=== PATIENT | female | born 1945 | race Two or more races ===

== ENCOUNTER 2025-08-05 14:29 | Inpatient (IN) | payer OTHER, MEDICAID ==
[~2025-08-05] VITALS: Ht 152.4 cm; Wt 56.0 kg
--- NOTE | 2025-08-05 14:36 | ECG ---
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
--- NOTE | 2025-08-05 14:49 | ED.PDOC ---
HPI Comments 79 y.o female with PMHx of HTN, DM, and arthritis, presents to the ED for a chief complaint of chest pain that started today. Patient was BIB family member who states patient pointed to her left left chest. Per family member, patient was recently [place]25 to 06/27/25 and was discharged to a rehabilitation facility. Patient then went back home where she was living alone and family member was able to move her in on 07/08/25 but [facility] doctors (zanjero and PCP) would not give patient all her medications including blood thinning given insurance and county changes. Patient was able to obtain some of her medication and has been compliant with taking them. Att his time, patient has spontaneous hearing deficiency. No other medical history or c/o reported. Chief Complaint: Chest Pain Time Seen by MD: 14:35 Reviewed Notes: Nurses Notes, Medications, Allergies Allergies: Coded Allergies: NO KNOWN ALLERGIES (Unverified , 08/05/25) Information Source: Patient Mode of Arrival: Wheelchair Severity: Moderate Timing: Hours Duration: Since onset Location: Chest (L) Radiation: No Radiation Quality: Sharp Onset: At Rest Cardiac Risk Factors: HTN, Diabetes PE Risk Factors: None History of: None Modifying Factors: Nothing Associated Signs and Symptoms: None Past Medical History PAST MEDICAL HISTORY: Arthritis, DM, HTN Surgical History: Unknown PACKAGE PICK UP History: No Pertinent PACKAGE PICK UP History Family History Family History: Reviewed,noncontributory to illness Social History Smoker: Non-Smoker Alcohol: Denies ETOH Use Drugs: Denies Drug Use Lives In: Home Constitutional: denies: chills, diaphoresis, fatigue, fever, malaise, sweats, weakness, others EENTM: denies: blurred vision, double vision, ear bleeding, ear discharge, ear drainage, ear pain, ear ringing, eye pain, eye redness, hearing loss, mouth pain, mouth swelling, nasal discharge, nose bleeding, nose congestion, nose pain, photophobia, tearing, throat pain, throat swelling, voice changes, others Respiratory: denies: cough, hemoptysis, orthopnea, SOB at rest, shortness of breath, SOB with excertion, stridor, wheezing, others Cardiovascular: reports: chest pain; denies: dizzy spells, diaphoresis, Dyspnea on exertion, edema, irregular heart beat, left arm pain, lightheadedness, palpitations, PND, syncope, others Gastrointestinal: denies: abdomen distended, abdominal pain, blood streaked bowels, constipated, diarrhea, dysphagia, difficulty swallowing, hematemesis, melena, nausea, poor appetite, poor fluid intake, rectal bleeding, rectal pain, vomiting, others Genitourinary: denies: abnormal vagina bleeding, burning, dyspareunia, dysuria, flank pain, frequency, hematuria, incontinence, pain, , vagina discharge, urgency, others Neurological: denies: dizziness, fainting, headache, left sided numbness, left sided weakness, numbness, paresthesia, pre-existing deficit, right sided n umbness, right sided weakness, seizure, speech problems, tingling, tremors, weakness, others Musculoskeletal: denies: back pain, gout, joint pain, joint swelling, muscle pain, muscle stiffness, neck pain, others Integumetry: denies: bruises, change in color, change in hair/nails, dryness, laceration, lesions, lumps, rash, wounds, others Allergic/Immunocompromised: denies: Difficulty Healing, Frequent Infections, Hives, Itching, others Hematologic/Lymphatic: denies: anemia, blood clots, easy bleeding, easy bruising, swollen glands, others Endocrine: denies: excessive hunger, excessive sweating, excessive thirst, excessive urination, flushing, intolerance to cold, intolerance to heat, unexplained weight gain, unexplained weight loss, others Psychiatric: denies: anxiety, bipolar disorder, depression, hopeless, panic disorder, schizophrenia, sleepless, suicidal, others All Other Systems: Reviewed and Negative Physical Exam General Appearance: Moderate Distress HEENT: Normal ENT Inspection, Pharynx Normal, TMs Normal Neck: Full Range of Motion, Non-Tender, Normal, Normal Inspection Respiratory: Chest Non-Tender, Lungs Clear, No Accessory Muscle Use, No Respiratory Distress, Normal Breath Sounds Cardiovascular: Irregular Breast Exam: Deferred Gastrointestinal: No Organomegaly, Non Tender, No Pulsatile Mass, Normal Bowel Sounds, Soft Genitalia: Deferred Pelvic: Deferred Rectal: Deferred Extremities: No calf tenderness, No pedal edema Musculoskeletal : Apperance: Normal Neurologic: Alert, scheduler II-XII nml as Tested, No Motor Deficits, Normal Affect, Normal Mood, No Sensory Deficits Cerebellar Function: NOT DONE Reflexes: NOT DONE Skin: Normal Color Peripheral Pulses: 3+ Radial (R), 3+ Radial (L) Lymphatic: No Adenopathy EKG EKG : Pulse Rate (adult): 128 Cardiac Rhythm: Afib Was a procedure done? Was a procedure done?: No CP Differential Dx Differential Diagnosis: A-fib, A-Flutter, Angina, Anxiety / Panic Attack, Atrial Dysrhythmia, Electrolyte Disorder, N/A Differential Diagnosis: Angina, Chest Wall Pain, Cholelithiasis, Costochondritis, Gastritis, Myocardial Infarction, Pericarditis X-Ray, Labs, Meds, VS Vital Signs Date Time Temp Pulse Resp B/P (MAP) Pulse Ox O2 Delivery O2 Flow Rate FiO2 08/05/25 17:07 94 Nasal Cannula* 2 28 08/05/25 17:01 127 17 94 Nasal Cannula* 2 28 08/05/25 15:42 97.7 129 16 139/83 (101) 94 97.7 08/05/25 15:25 119 08/05/25 14:47 98.0 150 20 106/76 95 98.0 08/05/25 14:34 150 Lab Test 08/05/25 16:09 08/05/25 14:57 Range/Units Troponin I High Sensitivity 4 5 </=34 ng/L White Blood Count 8.7 4.4-10.8 10^3/uL Red Blood Count 5.63 H 4.0-5.20 10^6/uL Hemoglobin 19.1 H 12.2-16.2 g/dL Hematocrit 55.5 H 36.0-46.0 % Mean Corpuscular Volume 98.5 80.0-100.0 fL Mean Corpuscular Hemoglobin 34.0 H 28.0-32.0 pg Mean Corpuscular Hemoglobin Concent 34.5 32.0-36.0 g/dL Red Cell Distribution Width 17.7 H 11.8-14.3 % Platelet Count 216 140-450 10^3/uL Mean Platelet Volume 8.9 6.9-10.8 fL Neutrophils (%) (Auto) 37.0-80.0 % Lymphocytes (%) (Auto) 10.0-50.0 % Monocytes (%) (Auto) 0.0-12.0 % Basophils (%) (Auto) 0.0-2.0 % Neutrophils # (Auto) 1.6-8.6 10 ^3/uL Lymphocytes # (Auto) 0.4-5.4 10 ^3/uL Monocytes # (Auto) 0-1.3 10 ^3/uL Differential Total Cells Counted 100.0 100 Neutrophils % (Manual) 65 37.0-80.0 Band Neutrophils % (Manual) 2 Lymphocytes % (Manual) 27 10.0-50.0 Monocytes % (Manual) 5 0-12 Eosinophils % (Manual) 1 0-7 Basophils % (Manual) 0 0.0-2.0 Metamyelocytes % (manual) 0 Myelocytes % (Manual) 0 Promyelocytes % (Manual) 0 Blast Cells % (Manual) 0 Reactive Lymphocytes 0 Platelet Estimate F Prothrombin Time 13.3 H 9.3-11.8 sec Prothrombin Time INR 1.29 H 0.9-1.15 Activated Partial Thromboplast Time 27.4 24.5-34.5 SEC Sodium Level 131 L 136-145 mmol/L Potassium Level 3.8 3.5-5.1 mmol/L Chloride Level 94 L 98-107 mmol/L Carbon Dioxide Level 16 L 20-31 mmol/L Anion Gap 21 H 5-15 Blood Urea Nitrogen 8 L 9-23 mg/dL Creatinine 0.81 0.550-1.02 mg/dL Glomerular Filtration Rate Calc 73 >90 mL/min BUN/Creatinine Ratio 9.9 L 10.0-20.0 Serum Glucose 138 H 74-106 mg/dL Lactic Acid Level 3.2 *H 0.4-2.0 mmol/L Calcium Level 9.8 8.7-10.4 mg/dL Total Bilirubin 0.7 0.2-1.0 mg/dL Aspartate Amino Transferase (AST) 37 13-40 U/L Alanine Aminotransferase (ALT) 24 7-40 U/L Alkaline Phosphatase 149 H 46-116 U/L Total Protein 7.8 5.7-8.2 g/dL Albumin 3.8 3.2-4.8 g/dL Current Medications Medications (Trade) Dose Ordered Sig/Cornelius Route Start Time Stop Time Status Last Admin Sodium Chloride 500 ml @ 500 mls/hr Q1H ONCE IV 08/05/25 14:45 08/05/25 15:44 DC 08/05/25 15:11 Amiodarone HCl 100 ml @ 600 mls/hr ONCE ONCE IV 08/05/25 14:45 08/05/25 14:54 DC 08/05/25 15:11 Amiodarone HCL/ Dextrose 200 ml @ 33.33 mls/ hr ONCE ONCE IV 08/05/25 15:00 08/05/25 21:00 08/05/25 15:00 Patient alert. Came in because of rapid heart rate. Vitals stable. Answering questions. EKG does show atrial fibrillation. Started on amiodarone. Establish intravenous access. Was given fluids. Placed on oxygen. Continue to monitor. Time of 1ST Reevaluation: 14:40 Reevaluation 1ST: Unchanged Patient Education/Counseling: Diagnosis, Treatment Family Education/Counseling: Diagnosis, Treatment, Prognosis, Need For Follow Up SEPSIS Sepsis Screen Physician Orders Troponin-I Hs (08/05/25 17:34) Electrocardigram (08/05/25 17:34) Urinalysis (08/05/25 14:40) Chest Portable (08/05/25 14:40) Accucheck (08/05/25 14:40) Blood Culture (08/05/25 14:40) Notify Md If Map <65 Or Bp<90 (08/05/25 14:40) If Map<65 Start Vasopressor (08/05/25 14:40) Sepsis Reassesment After Fluid (08/05/25 15:40) Amiodarone 360mg/200ml Premix (Nexterone (08/05/25 15:00) Vital Signs Date Time Temp Pulse Resp B/P (MAP) Pulse Ox O2 Delivery O2 Flow Rate FiO2 08/05/25 17:07 94 Nasal Cannula* 2 28 08/05/25 17:01 127 17 94 Nasal Cannula* 2 28 08/05/25 15:42 97.7 129 16 139/83 (101) 94 97.7 08/05/25 15:25 119 08/05/25 14:47 98.0 150 20 106/76 95 98.0 08/05/25 14:34 150 Laboratory Tests Test 08/05/25 14:57 Lactic Acid Level 3.2 mmol/L (0.4-2.0) *H White Blood Count 8.7 10^3/uL (4.4-10.8) Medications Medications Dose Ordered Sig/Cornelius Route Start Time Stop Time Status Last Admin Dose Admin Amiodarone HCl 100 ml @ 600 mls/hr ONCE ONCE IV 08/05/25 14:45 08/05/25 14:54 DC 08/05/25 15:11 Amiodarone HCL/ Dextrose 200 ml @ 33.33 mls/ hr ONCE ONCE IV 08/05/25 15:00 08/05/25 21:00 08/05/25 15:00 Sodium Chloride 500 ml @ 500 mls/hr Q1H ONCE IV 08/05/25 14:45 08/05/25 15:44 DC 08/05/25 15:11 Departure 1 Departure Time of Disposition: 17:20 Impression: Primary Impression: Atrial fibrillation Qualified Codes: I48.0 - Paroxysmal atrial fibrillation Disposition: ADMITTED INPATIENT Admit to: Med Surg Condition: Guarded Critical Care Note Critical Care Time?: Yes (90 min-critical care time only) Stability Stability form required: No Heart Score Heart Score: Heart Score Response (Comments) Value History Slightly Suspicious 0 EKG Normal 0 Age >65 2 Risk Factors >3 or Hx ASHD 2 Troponin Normal limit 0 Total 4 I personally scribed for BIJAN FREEDMAN MD ([email or web address]) on 08/05/25 at 14:49. Electronically submitted by Nathalia Parrish ([facility]). BIJAN FREEDMAN MD Aug 05, 2025 14:49
[2025-08-05] MEDS: AMIODARONE 360mg/200mL PREMIX 200 ML IV ONE (15:00)
[2025-08-05] MEDS: AMIODARONE BOLUS KIT 100 ML IV ONE (15:11)
[2025-08-05] MEDS: SODIUM CHLORIDE 0.9% 500 ML IV ONE (15:11)
--- NOTE | 2025-08-05 15:14 | DVH ---
EXAM: XY CHEST PORTABLE Indication: sob Technique: Single frontal view of the chest was obtained Comparison: None FINDINGS: Lines and Tubes: None Lungs: No focal consolidation. Pleura: No effusion. No pneumothorax. Cardiomediastinal contours: Unremarkable Bones: No acute osseous abnormality. IMPRESSION: No acute cardiopulmonary disease.
[2025-08-05 15:20] LABS: Hematocrit 55.5 % (36.0-46.0)
[2025-08-05 15:22] LABS: Hemoglobin 19.1 g/dL (12.2-16.2); Mean Corpuscular Hemoglobin 34.0 pg (28.0-32.0); Mean Corpuscular Volume 98.5 fL (80.0-100.0)
[2025-08-05 15:36] LABS: INR 1.29 (0.9-1.15); Partial Thromboplastin Time 27.4 SEC (24.5-34.5); Prothrombin Time 13.3 sec (9.3-11.8)
[2025-08-05 15:51] LABS: Lactic Acid w/Reflex 3.2 mmol/L (0.4-2.0)
[2025-08-05 16:06] LABS: Alanine Aminotransferase 24 U/L (7-40); Albumin 3.8 g/dL (3.2-4.8); Alkaline Phosphatase 149 U/L (46-116); Anion Gap 21 (5-15); BUN/Creatinine Ratio 9.9 (10.0-20.0); Bilirubin, Total 0.7 mg/dL (0.2-1.0); Blood Urea Nitrogen 8 mg/dL (9-23); Calcium 9.8 mg/dL (8.7-10.4); Carbon Dioxide 16 mmol/L (20-31); Chloride 94 mmol/L (98-107); Glucose 138 mg/dL (74-106); Potassium 3.8 mmol/L (3.5-5.1); Sodium 131 mmol/L (136-145); Total Cells Counted 100.0 (100); Total Protein 7.8 g/dL (5.7-8.2)
--- NOTE | 2025-08-05 16:08 | ECG ---
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
[2025-08-05 17:01] VITALS: PULSE 127; RESP 17; O2SAT 94
[2025-08-05] MEDS: CEFEPIME 1GM/50ML 50 ML IV ONE (17:39)
--- NOTE | 2025-08-05 18:57 | ECG ---
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
[2025-08-05] MEDS ORDERED: ACETAMINOPHEN 325 MG TAB PO PRN (20:00)
[2025-08-05] MEDS: SODIUM CHLORIDE 0.9% 1,000 ML IV ONE (20:00)
[2025-08-05] MEDS ORDERED: ONDANSETRON HCL 4 MG/2 ML VIAL IV PRN (20:00)
[2025-08-05] MEDS ORDERED: MORPHINE SULFATE INJ 2 MG/ml SYRG IV PRN (21:30)
[2025-08-05] MEDS ORDERED: NITROGLYCERIN 0.4 MG SL TAB SL PRN (21:30)
[2025-08-05 21:31] LABS: Base Excess -4.4 mmol/L (-2.0-3.0)
[2025-08-05] MEDS ORDERED: HYDROcodone-ACET 5/325MG TAB PO PRN (22:00)
[2025-08-05] MEDS ORDERED: CEFEPIME 1GM/50ML 50 ML IV SCH (22:00)
[2025-08-05 22:43] LABS: Urine Protein, UAD 2+ (Negative)
[2025-08-06] VITALS (8 sets, daily range): BP systolic 90–121; BP diastolic 61–81; PULSE 100–116; RESP 11–26; TEMP 97.9–98.5; O2SAT 94–100
[2025-08-06] MEDS: CEFEPIME 1GM/50ML 50 ML IV SCH (02:00)
[2025-08-06 04:26] LABS: Hematocrit 51.7 % (36.0-46.0); Hemoglobin 17.4 g/dL (12.2-16.2); Mean Corpuscular Hemoglobin 33.2 pg (28.0-32.0); Mean Corpuscular Volume 98.8 fL (80.0-100.0); Nucleated Red Blood Cells % 0.1 %
--- NOTE | 2025-08-06 04:28 | DVHHP2 ---
History of Present Illness Reason for Visit: Chest pain History of Present Illness 79-year-old female presents for evaluation of chest pain. Patient presents with a one day history of left-sided chest pain with shortness for breath. On arrival patient was noted to be in AFib with RVR and was started on amiodarone drip. Patient denies nausea or vomiting. Past Medical History Dementia, hypertension, diabetes mellitus Family History Noncontributory Smoke: No ALCOHOL: none Drugs: None Lives: with Family Review of Systems Review of Systems Review of systems are currently negative otherwise addressed in HPI. Allergies: Coded Allergies: NO KNOWN ALLERGIES (Unverified , 08/05/25) Medications Current Medications Medications Dose Ordered Sig/Cornelius Route Start Time Stop Time Status Last Admin Dose Admin Cefepime HCl 50 ml @ 12.5 mls/hr Q8H IV 08/06/25 02:00 Enoxaparin Sodium 40 mg DAILY SC 08/06/25 10:00 Acetaminophen 650 mg Q6HP PRN PO 08/05/25 20:00 Ondansetron HCl 4 mg Q4HP PRN IV 08/05/25 20:45 Nitroglycerin 0.4 mg Q5MINP PRN SL 08/05/25 21:30 Morphine Sulfate 2 mg Q30M PRN IV 08/05/25 21:30 Acetaminophen/ Hydrocodone Bitart 1 tab Q6HPRN PRN PO 08/05/25 22:00 Exam Vital Signs Vital Signs Date Time Temp Pulse Resp B/P (MAP) Pulse Ox O2 Delivery O2 Flow Rate FiO2 08/05/25 18:00 131 16 136/94 (108) 94 08/05/25 17:07 Nasal Cannula* 2 28 08/05/25 15:42 97.7 97.7 Exam Gen: 79-year-old female in mild distress Skin: Warm, dry, normal color and texture, no rash. HEENT: Normocephalic atraumatic, mucous membranes moist and pink. Neck: Cervical and supraclavicular nodes normal without enlargement, trachea is midline, thyroid gland is normal without masses. Pulmonary: Clear to auscultation and percussion bilaterally. Cardiac: Irregular rhythm Abdomen: Soft, nontender, nondistended, bowel sounds present all 4 quadrants, no guarding, no rigidity, no organomegaly. Extremities: No cyanosis, clubbing, no edema Neuro: Cranial nerves II through XII grossly intact, normal affect and speech, no focal motor deficits. Labs/Xrays ORDERING PHYSICIAN: BIJAN FREEDMAN MD PROCEDURE(s): CXRP - CHEST PORTABLE REASON: sob ORDER NUMBER(s): [id number], ACCESSION NUMBER(s): [id number] EXAM: XY CHEST PORTABLE Indication: sob Technique: Single frontal view of the chest was obtained Comparison: None FINDINGS: Lines and Tubes: None Lungs: No focal consolidation. Pleura: No effusion. No pneumothorax. Cardiomediastinal contours: Unremarkable Bones: No acute osseous abnormality. IMPRESSION: No acute cardiopulmonary disease. Labs Test 08/06/25 04:00 08/05/25 22:15 08/05/25 21:21 08/05/25 16:58 Range/Units Urine Color Dark yellow Yellow Urine Clarity Ex.turbid Clear Urine pH 5.5 5.0-9.0 Urine Specific [place] 1.031 1.001-1.035 Urine Protein 2+ H Negative Urine Ketones 1+ H Negative Urine Blood 2+ H Negative /uL Urine Nitrite Negative Negative Urine Bilirubin Negative Negative Urine Urobilinogen Normal Negative mg/dL Urine Leukocyte Esterase 3+ Negative /uL Urine RBC 112 0 - 4 /hpf Urine Microscopic WBC 1681 H 0-5 /HPF Urine Squamous Epithelial Cells None seen <5 /hpf Urine Bacteria None seen None Seen /hpf Urine Glucose 2+ H Normal mg/dL Blood Gas Specimen Type Arterial Blood Gas Sample Site Left brachial Blood Gas Patient Temperature 37.0 Arterial Blood Date Drawn [id number] Arterial Blood pH 7.438 7.350-7.450 Arterial Blood Partial Pressure CO2 26.8 L 32.0-45.0 mmHg Arterial Blood Partial Pressure O2 81.8 L 83.0-108.0 mmHg Arterial Blood HCO3 17.7 L 21.0-28.0 mmol/L Arterial Blood Oxygen Saturation 96.4 94.0-98.0 % Arterial Blood Base Excess -4.4 L -2.0-3.0 mmol/L Arterial Blood Oxyhemoglobin 95.4 94.0-98.0 % Arterial Blood Carboxyhemoglobin 0.4 L 0.5-1.5 % Arterial Blood Methemoglobin 0.6 0.0-1.5 % Deny Test Yes Blood Gas Total Hemoglobin 17.70 H 12.0-16.0 g/dL Blood Gas Liter Flow 3.00 Blood Gas Modality Nasal cannula FiO2 % 32.0 Blood Gas Critical Value Read Back Yes Lactic Acid Level 2.7 *H 0.4-2.0 mmol/L Troponin I High Sensitivity 3 L </=34 ng/L Test 08/05/25 14:57 Range/Units Differential Total Cells Counted 100.0 100 Neutrophils % (Manual) 65 37.0-80.0 Band Neutrophils % (Manual) 2 Lymphocytes % (Manual) 27 10.0-50.0 Monocytes % (Manual) 5 0-12 Eosinophils % (Manual) 1 0-7 Basophils % (Manual) 0 0.0-2.0 Metamyelocytes % (manual) 0 Myelocytes % (Manual) 0 Promyelocytes % (Manual) 0 Blast Cells % (Manual) 0 Reactive Lymphocytes 0 Platelet Estimate F Prothrombin Time 13.3 H 9.3-11.8 sec Prothrombin Time INR 1.29 H 0.9-1.15 Activated Partial Thromboplast Time 27.4 24.5-34.5 SEC SEPSIS Sepsis Screen Date sepsis recognized/suspect: Aug 05, 2025 Time Sepsis recognized/suspect: 1440 Recent Procedure: No On Antibiotic Therapy: Yes Respiratory Rate >20: Yes Heart Rate >90: Yes Temp<36 C (96.8 F) or >38.3 C: No SBP <90 or MAP <65 mmHG: No New Acute Mental Status Change: No Is the patient on CPAP, BIPAP,: No Physician Orders Ondansetron Hcl (Zofran) (08/05/25 20:45) Abg W/ Co-Ox (08/05/25 20:43) Admit (08/05/25 21:28) Nitroglycerin Sublingual (Ntrostat Subli (08/05/25 21:30) Morphine Sulfate Injection (08/05/25 21:30) Stat Ekg For Chest Pain (08/05/25 21:28) Notify Of Changes From Base (08/05/25 21:28) Channel Opener Outsoles For 24 Hours (08/05/25 21:28) Emergency Dysrhythmia Protocol (08/05/25 21:28) Rhythm Strips Once Every Shift (08/05/25 21:28) Oxygen By Nasal Cannula (08/05/25 21:28) Hydrocodone-Acet 5/325mg Tab ([place] 5/32 (08/05/25 22:00) Communication Order (08/06/25 04:23) Laboratory Tests Test 08/05/25 16:58 08/06/25 04:00 Lactic Acid Level 2.7 mmol/L (0.4-2.0) *H White Blood Count Pending Medications Medications Dose Ordered Sig/Conrelius Route Start Time Stop Time Status Last Admin Dose Admin Sodium Chloride 1,000 ml @ 100 mls/hr Q10H ONCE IV 08/05/25 20:00 08/06/25 05:59 08/05/25 20:00 100 MLS/HR Assessment/Plan Assessment/Plan Assessment AFib with RVR Diabetes mellitus Hypertension Dementia UTI Plan Admit the patient to JIMÉNEZ to the hospitalist Continue amiodarone drip Cardiology consultation Echocardiogram pending Rocephin Continue treatment per orders Plan discussed with: Patient My Orders Orders - JOHN SANCHES Procedure Category Date Status Time Communication Order ORDERS 08/05/25 Transmitted 19:45 Sodium Chloride 0.9% PHA 08/05/25 In Process 20:00 Consistent DIET 08/06/25 Transmitted Carb(Ccho)Diabetes Breakfast Enoxaparin Sodium PHA 08/06/25 In Process (Lovenox) 10:00 Complete Blood Count LAB 08/06/25 In Process 04:00 Comprehensive LAB 08/06/25 In Process Metabolic Panel 04:00 Echo 2d Mode Cardiac US 08/05/25 Logged DOP 19:47 Condition: Critical NACHO 08/05/25 In Process 19:47 Acetaminophen Tablet PHA 08/05/25 In Process (Tylenol Tablet) 20:00 Bedrest With Bathroom NACHO 08/05/25 In Process Privileg 19:47 * Cardiology Consult CONS 08/05/25 Transmitted 19:47 Cefepime 1gm/50ml PHA 08/06/25 In Process (Maxipime 1gm/50ml) 02:00 Ondansetron Hcl PHA 08/05/25 In Process (Zofran) 20:45 Admit ADMIT 08/05/25 Transmitted 21:28 Nitroglycerin PHA 08/05/25 In Process Sublingual (Ntrostat 21:30 Morphine Sulfate PHA 08/05/25 In Process Injection 21:30 Stat Ekg For Chest NACHO 08/05/25 In Process Pain 21:28 Notify Md Of Changes [facility] 08/05/25 In Process From Base 21:28 Channel Opener Outsoles For [facility] 08/05/25 In Process 24 Hours 21:28 Emergency Dysrhythmia [facility] 08/05/25 In Process Protocol 21:28 Rhythm Strips Once [facility] 08/05/25 In Process Every Shift 21:28 Oxygen By Nasal RT 08/05/25 Transmitted Cannula 21:28 Hydrocodone-Acet PHA 08/05/25 In Process 5/325mg Tab ([place] 22:00 Communication Order ORDERS 08/06/25 Verified 04:23 Date of Service: Aug 05, 2025 Billing Provider: JOHN SANCHES Common Visit Codes: [id number] CARE 30-74 MIN JOHN SANCHES Aug 06, 2025 04:28
[2025-08-06 06:30] LABS: Triglycerides 136 mg/dL (< 150)
[2025-08-06 06:35] LABS: Cholesterol 218 mg/dL (< 200); HDL Cholesterol 25 mg/dL (40-59)
[2025-08-06 06:36] LABS: Alanine Aminotransferase 18 U/L (7-40); Alkaline Phosphatase 114 U/L (46-116); Anion Gap 14 (5-15); BUN/Creatinine Ratio 16.7 (10.0-20.0); Blood Urea Nitrogen 11 mg/dL (9-23); Carbon Dioxide 22 mmol/L (20-31); Total Protein 6.2 g/dL (5.7-8.2)
[2025-08-06 06:37] LABS: Bilirubin, Total 0.4 mg/dL (0.2-1.0)
[2025-08-06 06:50] LABS: Albumin 3.1 g/dL (3.2-4.8); Calcium 8.5 mg/dL (8.7-10.4); Chloride 92 mmol/L (98-107); Glucose 153 mg/dL (74-106); Potassium 3.4 mmol/L (3.5-5.1); Sodium 128 mmol/L (136-145)
[2025-08-06] MEDS: ONDANSETRON HCL 4 MG/2 ML VIAL IV PRN (08:30)
--- NOTE | 2025-08-06 08:56 | DVHINCON2 ---
KATHRIN DUGAN EGG CRATER 08/06/25 0856: Date Seen: Aug 06, 2025 Referring Physician MANUEL Garrison Reason for Consultation AFib with RVR History of Present Illness This is an 79-year-old Amharic-speaking female who presented to the ED with complaint of chest pain that began a day prior to arrival. She is alert to name and place but is a poor historian. At present, she denies chest pain, diaphoresis, shortness of breath, or dyspnea. Per ED course, she was noted to be in atrial fibrillation with rapid ventricular response at rates in the 150s a nd she was started on amiodarone drip. According to the chart review, her family member reported that the patient had pointed to left-sided chest pain prior to arrival. A 12 lead ECG confirmed atrial fibrillation with RVR. Troponins have remained negative. Past medical history includes hypertension, diabetes type 2, dementia, hard of hearing, and arthritis. Past Medical History As stated in HPI Past Surgical History Denies Family History Reviewed, non-contributory to the management of this case. Social History The patient lives at home, denies smoking, alcohol or illicit drugs abuse. Allergies: Coded Allergies: NO KNOWN ALLERGIES (Unverified , 08/05/25) Current Medications Current Medications Medications (Trade) Dose Ordered Sig/Cornelius Route PRN Reason Start Time Stop Time Status Last Admin Cefepime HCl 50 ml @ 12.5 mls/hr Q8HR IV 08/05/25 22:00 08/05/25 16:11 DC Cefepime HCl 50 ml @ 12.5 mls/hr Q8H IV 08/06/25 02:00 Ondansetron HCl (Zofran) 4 mg Q4HP PRN IV NAUSEA / VOMITING 08/05/25 20:00 08/05/25 20:42 DC Enoxaparin Sodium (Lovenox) 40 mg DAILY SC 08/06/25 10:00 Acetaminophen (Tylenol Tablet) 650 mg Q6HP PRN PO PAIN SCALE 1-3 OR TEMP>100.4 08/05/25 20:00 Ondansetron HCl (Zofran) 4 mg Q4HP PRN IV NAUSEA / VOMITING 08/05/25 20:45 08/06/25 08:30 Nitroglycerin (Ntrostat Sublingual) 0.4 mg Q5MINP PRN SL FOR CHEST PAIN 08/05/25 21:30 Morphine Sulfate 2 mg Q30M PRN IV FOR CHEST PAIN 08/05/25 21:30 Acetaminophen/ Hydrocodone Bitart ([place] 5/325MG Tab) 1 tab Q6HPRN PRN PO MODERATE PAIN (4-6 PAIN SCALE) 08/05/25 22:00 Amiodarone HCL/ Dextrose 200 ml @ 16.66 mls/ hr Q12H IV 08/06/25 11:45 Review of Systems Constitutional: No symptom reported Ears, Nose, & Throat: No symptom reported Eyes: No symptom reported Neurological: No symptoms reported Pulmonary/Respiratory: No symptom reported Cardiovascular: Chest pain, none currently. No palpitations at this time Gastrointestinal: No symptom reported Genitourinary: No symptom reported Musculoskeletal: No symptom reported Skin: No symptom reported Psychiatric: No symptom reported Endocrine: No symptom reported Hemotologic/Lymphatic: No symptom reported Vital Signs Vital Signs Date Time Temp Pulse Resp B/P (MAP) Pulse Ox O2 Delivery O2 Flow Rate FiO2 08/06/25 08:00 108 13 123/81 (95) 93 08/06/25 07:39 98.1 98.1 08/06/25 07:30 Nasal Cannula* 2 28 Physical Exam INITIAL VITAL SIGNS: Reviewed by me GENERAL: Elderly female, alert and oriented to name and place, in no acute distress HEAD: Head is normocephalic and atraumatic. EYES: EOMI, PERRL. No scleral icterus. No conjunctival injection. ENT: Moist mucous membranes. NECK: Supple, No masses, Full range of motion. RESPIRATORY: No tachypnea. Clear breath sounds bilaterally. No wheezing, rales, rhonchi. CV: Irregularly irregular rhythm, tachycardic, no murmurs, no edema GI/: Active bowel sounds, soft, nondistended, nontender. No guarding. No rebound. No masses. No CVA tenderness. INTEGUMENTARY: Warm and dry. No obvious rashes. NEUROLOGIC: Alert and oriented. Labs/Diagnostic Data Labs Test 08/06/25 05:54 08/06/25 04:00 08/05/25 22:15 08/05/25 21:21 Range/Units Sodium Level 128 L 136-145 mmol/L Potassium Level 3.4 L 3.5-5.1 mmol/L Chloride Level 92 L 98-107 mmol/L Carbon Dioxide Level 22 20-31 mmol/L Anion Gap 14 5-15 Blood Urea Nitrogen 11 9-23 mg/dL Creatinine 0.66 0.550-1.02 mg/dL Glomerular Filtration Rate Calc 88 >90 mL/min BUN/Creatinine Ratio 16.7 10.0-20.0 Serum Glucose 153 H 74-106 mg/dL Calcium Level 8.5 L 8.7-10.4 mg/dL Total Bilirubin 0.4 0.2-1.0 mg/dL Aspartate Amino Transferase (AST) 34 13-40 U/L Alanine Aminotransferase (ALT) 18 7-40 U/L Alkaline Phosphatase 114 46-116 U/L Total Protein 6.2 5.7-8.2 g/dL Albumin 3.1 L 3.2-4.8 g/dL Triglycerides Level 136 < 150 mg/dL Cholesterol Level 218 H < 200 mg/dL LDL Cholesterol 183 H < 100 mg/dL HDL Cholesterol 25 L 40-59 mg/dL Thyroid Stimulating Hormone (TSH) 4.76 0.55-4.78 uIU/mL White Blood Count 9.1 4.4-10.8 10^3/uL Red Blood Count 5.23 H 4.0-5.20 10^6/uL Hemoglobin 17.4 H 12.2-16.2 g/dL Hematocrit 51.7 H 36.0-46.0 % Mean Corpuscular Volume 98.8 80.0-100.0 fL Mean Corpuscular Hemoglobin 33.2 H 28.0-32.0 pg Mean Corpuscular Hemoglobin Concent 33.7 32.0-36.0 g/dL Red Cell Distribution Width 17.1 H 11.8-14.3 % Platelet Count 160 140-450 10^3/uL Mean Platelet Volume 8.8 6.9-10.8 fL Neutrophils (%) (Auto) 76.0 37.0-80.0 % Lymphocytes (%) (Auto) 13.7 10.0-50.0 % Monocytes (%) (Auto) 9.3 0.0-12.0 % Eosinophils (%) (Auto) 0.6 0.0-7.0 % Basophils (%) (Auto) 0.4 0.0-2.0 % Neutrophils # (Auto) 6.9 1.6-8.6 10 ^3/uL Lymphocytes # (Auto) 1.2 0.4-5.4 10 ^3/uL Monocytes # (Auto) 0.8 0-1.3 10 ^3/uL Eosinophils # (Auto) 0.1 0-0.8 10 ^3/uL Basophils # (Auto) 0 0-0.2 10 ^3/uL Nucleated Red Blood Cells 0.1 % Urine Color Dark yellow Yellow Urine Clarity Ex.turbid Clear Urine pH 5.5 5.0-9.0 Urine Specific [place] 1.031 1.001-1.035 Urine Protein 2+ H Negative Urine Ketones 1+ H Negative Urine Blood 2+ H Negative /uL Urine Nitrite Negative Negative Urine Bilirubin Negative Negative Urine Urobilinogen Normal Negative mg/dL Urine Leukocyte Esterase 3+ Negative /uL Urine RBC 112 0 - 4 /hpf Urine Microscopic WBC 1681 H 0-5 /HPF Urine Squamous Epithelial Cells None seen <5 /hpf Urine Bacteria None seen None Seen /hpf Urine Glucose 2+ H Normal mg/dL Blood Gas Specimen Type Arterial Blood Gas Sample Site Left brachial Blood Gas Patient Temperature 37.0 Arterial Blood Date Drawn [id number] Arterial Blood pH 7.438 7.350-7.450 Arterial Blood Partial Pressure CO2 26.8 L 32.0-45.0 mmHg Arterial Blood Partial Pressure O2 81.8 L 83.0-108.0 mmHg Arterial Blood HCO3 17.7 L 21.0-28.0 mmol/L Arterial Blood Oxygen Saturation 96.4 94.0-98.0 % Arterial Blood Base Excess -4.4 L -2.0-3.0 mmol/L Arterial Blood Oxyhemoglobin 95.4 94.0-98.0 % Arterial Blood Carboxyhemoglobin 0.4 L 0.5-1.5 % Arterial Blood Methemoglobin 0.6 0.0-1.5 % Deyn Test Yes Blood Gas Total Hemoglobin 17.70 H 12.0-16.0 g/dL Blood Gas Liter Flow 3.00 Blood Gas Modality Nasal cannula FiO2 % 32.0 Blood Gas Critical Value Read Back Yes Test 08/05/25 16:58 08/05/25 14:57 Range/Units Lactic Acid Level 2.7 *H 0.4-2.0 mmol/L Troponin I High Sensitivity 3 L </=34 ng/L Differential Total Cells Counted 100.0 100 Neutrophils % (Manual) 65 37.0-80.0 Band Neutrophils % (Manual) 2 Lymphocytes % (Manual) 27 10.0-50.0 Monocytes % (Manual) 5 0-12 Eosinophils % (Manual) 1 0-7 Basophils % (Manual) 0 0.0-2.0 Metamyelocytes % (manual) 0 Myelocytes % (Manual) 0 Promyelocytes % (Manual) 0 Blast Cells % (Manual) 0 Reactive Lymphocytes 0 Platelet Estimate F Prothrombin Time 13.3 H 9.3-11.8 sec Prothrombin Time INR 1.29 H 0.9-1.15 Activated Partial Thromboplast Time 27.4 24.5-34.5 SEC PROCEDURE(s): CXRP - CHEST PORTABLE REASON: sob ORDER NUMBER(s): [id number], ACCESSION NUMBER(s): [id number] EXAM: XY CHEST PORTABLE Indication: sob Technique: Single frontal view of the chest was obtained Comparison: None FINDINGS: Lines and Tubes: None Lungs: No focal consolidation. Pleura: No effusion. No pneumothorax. Cardiomediastinal contours: Unremarkable Bones: No acute osseous abnormality. IMPRESSION: No acute cardiopulmonary disease. Assessment Atrial fibrillation with RVR, ? new onset- chads Vasc score 4, HAS-BLED score 3 severe chf ef 20% left atrium enlarged MASSIVE LEFT ATRIUM MASS (THROMBUS SUSPECTED VS MYXOMA NO OBVIOUS STALK HOWEVER) MEASURES 3.0 X 3.6 CM Sepsis UTI Dyslipidemia Hypertension Diabetes type 2 Plan/Recommendation (Dr Quinonez. ): The patient will remain on IV amiodarone for the rate and rhythm stabilization with continuous telemetry monitoring. Metoprolol tartrate 12.5 mg p.o. b.i.d. will be initiated for additional rate control as tolerated by blood pressure. Serial troponins remain negative, and there is no current evidence of acute coronary syndrome. A transthoracic echocardiogram will be obtained to assess left ventricular function and valvular disease. Additional labs will include hemoglobin A1c, TSH, serum magnesium, BNP, and lipid panel to assist in overall cardiovascular risk assessment and to rule out decompensated heart failure. Antibiotics for UTI and sepsis will be continued per primary team, and electrolytes and hemodynamics we will be monitored closely. Given CHADS-VASc score of 4, the patient has elevated thromboembolic risks, however, her has bled score of 3 indicates moderate bleeding risk. Echo revealed severe chf ef 20% RV not well seen left atrium enlarged MASSIVE LEFT ATRIUM MASS (THROMBUS SUSPECTED VS MYXOMA NO OBVIOUS STALK HOWEVER) MEASURES 3.0 X 3.6 CM Patient will be placed on Lovenox 50mg SC BID and JEAN is scheduled for this coming friday. Attempted to call family but unsuccessful. This medical document was created using an electronic medical record system with voice recognition software and computerized dictation system. Although this document has been carefully reviewed, there might still be some phonetic and typographical errors. Occasional wrong-word or ``sound-alike substitutions may have occurred due to the inherent limitations of voice recognition software. These areas are purely typographical due to imperfections of the software programs and do not reflect any compromise in the patient's medical care. Please read the chart carefully and recognize, using context, where these substitutions have occurred. Plan discussed with: Patient Plan discussed with: Patient, Other (RN) NYHA Physical activity limitations: NA Date of Service: Aug 06, 2025 Billing Provider: NINA QUINONEZ MD Cardiology Common Codes: NOT BILLABLE Cardiology Consultation Codes: [id number] CONSULT <45MIN NINA QUINONEZ MD 08/06/25 1337: Allergies: Coded Allergies: NO KNOWN ALLERGIES (Unverified , 08/05/25) Plan/Recommendation PT APPARENTLY ADMITTED X 1 MONTH AT ANOTHER HOSPITAL, NEED TO GET RECORDS PT IS VERY POOR HISTORIAN LARGE THROMBUS VS MYXOMA NEEDS JEAN VERY POOR PROGNOSIS, CONSIDER GOALS OF CARE, HOSPICE IF DESIRED ANTICOAG /RATE CONTROL HIGH RISK PT FOR DECOMPENSATION , EMBOLUS OR KATHRIN DUGAN EGG CRATER Aug 06, 2025 08:56 NINA QUINONEZ MD Aug 06, 2025 13:37
[2025-08-06] MEDS: ENOXAPARIN SOD 40 MG/0.4 ML SYRINGE SC SCH (09:28)
[2025-08-06] MEDS: POTASSIUM CHL 20 Meq TABLET PO ONE (09:51)
[2025-08-06] MEDS: SODIUM CHLORIDE 0.9% 1,000 ML IV SCH (09:57)
[2025-08-06] MEDS: METOPROLOL TARTRATE 25 MG TAB PO SCH (10:07)
[2025-08-06] MEDS: AMIODARONE 360mg/200mL PREMIX 200 ML IV SCH (11:45)
--- NOTE | 2025-08-06 12:38 | DVHSR ---
APPROVED REPORT EXAM: Two-dimensional and M-mode echocardiogram with Doppler and color Doppler. Blood Pressure: 123/81 mmHg INDICATION Atrial Fibrillation RISK FACTORS Height: 5', Weight: 114 DIMENSIONS LVDd4.9 (3.8-5.7cm)LA (2D)3.4 (1.9-4.0cm)Aortic Root4.2 (2.0-3.7cm) LVDs4.5 (2.5-4.0cm)LA (MM) (1.9-4.0cm)Aortic Cusp Exc1.6 (1.5-2.0cm) EF (%) 20.0 (55-70%)Rt. Atrium4.0 (1.9-4.0cm)Asc. Aorta cm IVSd1.2 (0.7-1.1cm)RV (D) (1.8-2.4cm) PWd1.1 (0.7-1.1cm) Mitral Valve MitralMitral Stenosis E/A ratio0.02D MVAcm2 Aortic Valve Aortic ValveAortic Stenosis V10.50m/Larisa Mean GR.2mmHg V20.90m/Larisa Peak GR.4mmHg LVOT Diameter2.4 (1.8-2.4cm)Doppler AVA2.51cm2 Conclusion severe chf ef 20% RV not well seen left atrium enlarged MASSIVE LEFT ATRIUM MASS (THROMBUS SUSPECTED VS MYXOMA NO OBVIOUS STALK HOWEVER) MEASURES 3.0 X 3.6 C M MD BACK PRIMARY CARDS AWARE
--- NOTE | 2025-08-06 12:50 | DVHPN2 ---
Assessment/Plan Assessment/Plan progress note 79 F w IDDM, alzheimers, osteoarthritis, afib on Eliquis, CKD 2, HTN admitted for afib w RVR, started on amio drip physical exam aox3 b/l rhonchi s1 s2 irregular abdomen soft, suprapubic tenderness no LE edema labs ekg imaging reviewed POCUS done, preserved contractility, mass in LA, IVC normal assessment and plan afib RVR sepsis chronic diastolic HF LA mass? possible PNA gp gn acute bact cystitis alzheimers osteoarthritis CKD 2 lactic acidosis HLD osteoarthritis ex smoker amio for rate control o2 supp maintain >90% lovenox therapeutic cefepime follow urine culture iv bolus resume home meds basal bolus ISS follow cardio rec diet cardiac diabetic dvt ppx full lovenox full code Plan discussed with: Patient, Daughter My Orders Orders - YOLANDA BACK MD Procedure Category Date Status Time Lactated Ringer's PHA 08/06/25 In Process 12:45 Date of Service: Aug 06, 2025 Billing Provider: YOLANDA BACK MD Common Visit Codes: [id number] INP/OBS CARE(HIGH) YOLANDA BACK MD Aug 06, 2025 12:50
[2025-08-06] MEDS: LACTATED RINGER'S 1,000 ML IV ONE (16:24)
[2025-08-06] MEDS ORDERED: INSULIN LISPRO (HUMAN) 100 UNITS/ML ML SC SCH (17:00)
[2025-08-06] MEDS: INSULIN LISPRO (HUMAN) 100 UNITS/ML ML SC SCH (17:00)
[2025-08-06] MEDS: ACCU-CHEK COMFORT CURVE STRIP VI SCH (17:08)
[2025-08-06] MEDS: ATORVASTATIN 20 MG TAB PO SCH (22:00)
[2025-08-06] MEDS: DONEPEZIL HYDROCHLORIDE 5 MG TAB PO SCH (22:00)
[2025-08-06] MEDS ORDERED: INSULIN LANTUS (GLARGINE) 1 /0.01ml (100units/ml) SC SCH (22:00)
[2025-08-06] MEDS: ENOXAPARIN SOD 60 MG/0.6 ML SYRINGE SC SCH (22:00)
[2025-08-06] MEDS ORDERED: ENOXAPARIN SOD 60 MG/0.6 ML SYRINGE SC SCH (22:00)
[2025-08-07] VITALS (28 sets, daily range): BP systolic 94–133; BP diastolic 62–89; PULSE 101–139; RESP 13–29; TEMP 97.9–98.7; O2SAT 91–97
[2025-08-07] MEDS: LABETALOL HCL 20 MG/4 ML VL IV ONE (00:45)
[2025-08-07] MEDS ORDERED: BISA10SU45 RE ×2 (02:48)
[2025-08-07] MEDS ORDERED: DONE1TAB88 PO ×2 (02:48)
[2025-08-07] MEDS ORDERED: AMIO200T33 PO (02:48)
[2025-08-07] MEDS ORDERED: SITA50TA PO ×2 (02:48)
[2025-08-07] MEDS ORDERED: DAPA10TA3 PO ×2 (02:48)
[2025-08-07] MEDS ORDERED: INSU100I52 IJ ×2 (02:48)
[2025-08-07] MEDS ORDERED: SPIR25TA8 PO ×2 (02:48)
[2025-08-07] MEDS ORDERED: IPRA0.00 IN ×2 (02:48)
[2025-08-07] MEDS ORDERED: GLIP5TAB5 PO ×2 (02:48)
[2025-08-07] MEDS ORDERED: INSLANTI SC ×2 (02:48)
[2025-08-07] MEDS ORDERED: EMPA1TAB3 PO ×2 (02:48)
[2025-08-07] MEDS ORDERED: CYAN100088 PO ×2 (02:48)
[2025-08-07] MEDS ORDERED: FURO20TA3 PO (02:48)
[2025-08-07] MEDS ORDERED: APIX2.5T PO (02:48)
[2025-08-07 05:17] LABS: Alanine Aminotransferase 15 U/L (7-40); Alkaline Phosphatase 113 U/L (46-116); Anion Gap 13 (5-15); BUN/Creatinine Ratio 14.0 (10.0-20.0); Calcium 8.7 mg/dL (8.7-10.4); Carbon Dioxide 22 mmol/L (20-31); Magnesium 1.8 mg/dL (1.6-2.6); Potassium 4.0 mmol/L (3.5-5.1); Total Protein 6.1 g/dL (5.7-8.2)
[2025-08-07 05:18] LABS: Bilirubin, Total 0.5 mg/dL (0.2-1.0)
[2025-08-07 05:22] LABS: Hemoglobin 15.7 g/dL (12.2-16.2)
[2025-08-07 05:25] LABS: Hematocrit 45.3 % (36.0-46.0); Mean Corpuscular Hemoglobin 33.8 pg (28.0-32.0); Mean Corpuscular Volume 97.2 fL (80.0-100.0); Nucleated Red Blood Cells % 0.4 %
[2025-08-07 05:40] LABS: Albumin 3.0 g/dL (3.2-4.8); Blood Urea Nitrogen 8 mg/dL (9-23); Chloride 94 mmol/L (98-107); Glucose 158 mg/dL (74-106); Sodium 129 mmol/L (136-145)
[2025-08-07] MEDS ORDERED: METO-158 PO ×2 (07:39)
[2025-08-07] MEDS ORDERED: VALS40TA2 PO ×2 (07:43)
[2025-08-07] MEDS: POLYETHYLENE GLYCOL 17 GM PWDR PO SCH (09:31)
[2025-08-07] MEDS: SENNA 8.6 MG TAB PO ONE (09:31)
--- NOTE | 2025-08-07 12:50 | DVHPN2 ---
Progress Note Date Seen: Aug 07, 2025 Medical Necessity Reason Pt with a Central, PICC or Fol: No Subjective Patient reports: Feels better Objective vital signs Vital Sign Date Time Temp Pulse Resp B/P (MAP) Pulse Ox O2 Delivery O2 Flow Rate FiO2 08/07/25 11:44 101 110/74 08/07/25 11:00 29 08/07/25 10:00 94 08/07/25 08:30 98.1 98.1 08/07/25 08:00 Room Air* 0 21 Total Intake and Output 08/06/25 08/06/25 08/07/25 15:00 23:00 07:00 Intake Total 133.28 ml 1237.44 ml 345.78 ml Output Total 800 ml Balance 133.28 ml 1237.44 ml -454.22 ml medications Current Medications Medications Dose Ordered Sig/Cornelius Route Start Time Stop Time Status Last Admin Dose Admin Acetaminophen 650 mg Q6HP PRN PO 08/05/25 20:00 Ondansetron HCl 4 mg Q4HP PRN IV 08/05/25 20:45 08/06/25 08:30 4 MG Nitroglycerin 0.4 mg Q5MINP PRN SL 08/05/25 21:30 Morphine Sulfate 2 mg Q30M PRN IV 08/05/25 21:30 Acetaminophen/ Hydrocodone Bitart 1 tab Q6HPRN PRN PO 08/05/25 22:00 Amiodarone HCL/ Dextrose 200 ml @ 16.66 mls/ hr Q12H IV 08/06/25 11:45 08/07/25 09:46 16.66 MLS/HR Aspirin 81 mg DAILY PO 08/06/25 10:00 08/07/25 09:31 81 MG Metoprolol Tartrate 12.5 mg BID PO 08/06/25 10:00 08/07/25 09:33 12.5 MG Enoxaparin Sodium 50 mg Q12HR SC 08/06/25 22:00 08/07/25 09:30 50 MG Insulin Human Lispro AC SC 08/06/25 17:00 08/07/25 06:48 2 UNITS Diagnostic Test (Pha) 1 strip ACHS 08/06/25 17:00 08/07/25 11:54 1 STRIP Polyethylene Glycol 17 gm DAILY PO 08/07/25 10:00 08/07/25 09:31 17 GM Donepezil HCl 10 mg HS PO 08/06/25 22:00 Atorvastatin Calcium 40 mg HS PO 08/06/25 22:00 Cefepime HCl 50 ml @ 12.5 mls/hr Q12H IV 08/07/25 14:00 Examination: GENERAL:Abnormal, HEENT:Abnormal, LUNGS:Abnormal, CVS:Abnormal, ABDOMEN:Abnormal laboratory and microbiology Laboratory Tests 08/07/25 04:27 Test 08/07/25 04:27 Range/Units Serum Glucose 158 H 74-106 mg/dL Microbiology Date/Time Source Procedure Growth Status 08/06/25 18:28 Nose MRSA Screen - Final Complete 08/05/25 14:56 Blood Blood Culture - Preliminary NO GROWTH AFTER 24 HOURS OF INCUBATION. Resulted Problem List/Assessment/Plan Problem List/Assessment/Plan left atrial thrombus vs mass AMS ?dementia ckd afib rvr severe chf randa tomorrow cont lovenox and amio pt has poor prognosis, consider goals of care no family at bedside npo after 2400 Plan discussed with: Patient Dietary Evaluation Review Recommendations by RD: Dietary education by RD Comments: 1) Add 2g Na restriction to 60g CCHO diet 2) Encourage patient to limit intake of added sugar including sugar-sweetened beverages, desserts, candy, etc. Aim for a consistent intake of complex carbohydrates throughout the day, paired with protein to promote glycemic control 3) Refer to outpatient RD/CDCES for ongoing diabetes education 4) Follow-up with cardiology and neurology 5) Continue to monitor I&O, labs, and skin integrity Expected Outcomes/Goals: 1) appetite and labs to improve 2) f/u in 3-5 days Date of Service: Aug 07, 2025 Billing Provider: NINA QUINONEZ MD Common Visit Codes: NOT BILLABLE NINA QUINONEZ MD Aug 07, 2025 12:50
[2025-08-07] MEDS: CEFEPIME 1GM/50ML 50 ML IV SCH (14:00)
--- NOTE | 2025-08-07 16:09 | DVHPN2 ---
Assessment/Plan Assessment/Plan progress note 79 F w IDDM, alzheimers, osteoarthritis, afib on Eliquis, CKD 2, HTN admitted for afib w RVR, started on amio drip seen today, rate better, improved, plan for JEAN tomorrow physical exam aox3 b/l rhonchi s1 s2 irregular abdomen soft, suprapubic tenderness no LE edema labs ekg imaging reviewed POCUS done, preserved contractility, mass in LA, IVC normal assessment and plan afib RVR sepsis chronic diastolic HF LA mass? possible PNA gp gn acute bact cystitis alzheimers osteoarthritis CKD 2 lactic acidosis HLD osteoarthritis ex smoker amio for rate control o2 supp maintain >90% lovenox therapeutic cefepime follow urine culture iv bolus resume home meds basal bolus ISS follow cardio rec JEAN tomorrow diet cardiac diabetic dvt ppx full lovenox full code Plan discussed with: Patient Date of Service: Aug 07, 2025 Billing Provider: YOLANDA BACK MD Common Visit Codes: [id number] CARE 30-74 MIN YOLANDA BACK MD Aug 07, 2025 16:09
[2025-08-07] MEDS: MELATONIN 5 MG TAB PO ONE (21:40)
[2025-08-08] VITALS (58 sets, daily range): BP systolic 80–122; BP diastolic 50–84; PULSE 68–130; RESP 10–30; TEMP 97.7–98.3; O2SAT 86–97
[2025-08-08 06:25] LABS: Hematocrit 42.1 % (36.0-46.0); Hemoglobin 14.9 g/dL (12.2-16.2); Mean Corpuscular Hemoglobin 34.0 pg (28.0-32.0); Mean Corpuscular Volume 95.9 fL (80.0-100.0); Nucleated Red Blood Cells % 0.3 %
[2025-08-08 06:31] LABS: Alanine Aminotransferase 13 U/L (7-40); Alkaline Phosphatase 101 U/L (46-116); Anion Gap 11 (5-15); BUN/Creatinine Ratio 14.9 (10.0-20.0); Carbon Dioxide 23 mmol/L (20-31)
[2025-08-08 06:32] LABS: Bilirubin, Total 0.5 mg/dL (0.2-1.0)
[2025-08-08 06:43] LABS: Albumin 2.6 g/dL (3.2-4.8); Blood Urea Nitrogen 7 mg/dL (9-23); Calcium 8.2 mg/dL (8.7-10.4); Chloride 95 mmol/L (98-107); Glucose 125 mg/dL (74-106); Potassium 3.3 mmol/L (3.5-5.1); Sodium 129 mmol/L (136-145); Total Protein 5.3 g/dL (5.7-8.2)
[2025-08-08] MEDS: LIDOCAINE VISCOUS 2% 15ML UD PO ONE (11:30)
[2025-08-08] MEDS: MIDAZOLAM HCL 2MG/2ML 2ml VIAL (1mg/ml) IV ONE (11:31)
[2025-08-08] MEDS: fentaNYL CITRATE 100 MCG/2 ML VL IV ONE (11:33)
--- NOTE | 2025-08-08 11:53 | DVHOP2 ---
Operative Report Operative Report CARDIAC UTILITIES AND MAINTENANCE SUPERVISOR PROCEDURE REPORT [place], [place] Date of Service: 08/08/25 Concrete Sculptor: Nina Quinonez MD PROCEDURES PERFORMED: trans esophageal echocardiogram, conscious sedation <15 mins, doppler assesment complete JEAN, PREOPERATIVE DIAGNOSES: AFib , LA mass POSTOP DIAGNOSIS: LA thrombus DESCRIPTION OF PROCEDURE: The patient or appropriate family signed informed consent understanding the risks, benefits and alternatives of the procedure, they wished to proceed. The patient was brought to the cardiac metallurgical laboratory assistant in n.p.o. state. the patient was given 15 ml of oral viscous lidocaine. the patient was placed in a left lateral decubitus position with bite block in mouth. NExt conscious sedation was administered per metallurgical laboratory assistant protocol with _1_ mg of versed and __25 _ mcg of fentanyl. Next a JEAN probe was advanced to the mid esophagus with ease and multiple planar images obtained. At the completion of the procedure , probe was removed and there were no immediate complications. FINDINGS: Left Ventricle: Normal LV size and severe dysfunction LVEF estimated at 20 % Right Ventricle:RV enlarged with dysfunction Left atrium: severely enlarged, smoke in LA, large thrombus measuring 2.0 x 3.1 cm in multiple views. it appears to be coming from either the ERIC or LL pulm vein. this is likely thrombus. it is not a myxoma. Right atrium: mild enlarged Left atrial appendage: no thrombus noted, decreased velocity on PW monitoring Aortic valve: trileaflet valve, no severe or AI Mitral Valve: structurally normal, mild mitral regurg, MS doesnt have elevated velocities Tricuspid Valve: moderate tricuspid regurgitaiton, no TS Pulmonic Valve: structurally normal, no severe PIor PS Interatrial septum: negative color flow for R to L shunt Ascending aorta: no severe plaquing PLAN: very very high risk for CVA/ embolus clearly not a surgical candidate given comorbidities, dementia, frailty consider goals of care for pt , her prognosis very poor lovenox therapuetic and transition to doac and consider asa as well NINA QUINONEZ MD Aug 08, 2025 11:53
--- NOTE | 2025-08-08 11:54 | DVHPN2 ---
Progress Note Date Seen: Aug 08, 2025 Medical Necessity Reason Pt with a Central, PICC or Fol: No Subjective Patient reports: Feels worse Objective vital signs Vital Sign Date Time Temp Pulse Resp B/P (MAP) Pulse Ox O2 Delivery O2 Flow Rate FiO2 08/08/25 10:46 123 106/54 08/08/25 08:45 17 92 08/08/25 08:00 98.3 98.3 08/08/25 08:00 Room Air* 0 21 Total Intake and Output 08/07/25 08/07/25 08/08/25 15:00 23:00 07:00 Intake Total 133.28 ml 283.28 ml 282.78 ml Output Total 200 ml 325 ml Balance 133.28 ml 83.28 ml -42.22 ml medications Current Medications Medications Dose Ordered Sig/Cornelius Route Start Time Stop Time Status Last Admin Dose Admin Acetaminophen 650 mg Q6HP PRN PO 08/05/25 20:00 Ondansetron HCl 4 mg Q4HP PRN IV 08/05/25 20:45 08/06/25 08:30 4 MG Nitroglycerin 0.4 mg Q5MINP PRN SL 08/05/25 21:30 Morphine Sulfate 2 mg Q30M PRN IV 08/05/25 21:30 Acetaminophen/ Hydrocodone Bitart 1 tab Q6HPRN PRN PO 08/05/25 22:00 Amiodarone HCL/ Dextrose 200 ml @ 16.66 mls/ hr Q12H IV 08/06/25 11:45 08/08/25 02:36 16.66 MLS/HR Aspirin 81 mg DAILY PO 08/06/25 10:00 08/07/25 09:31 81 MG Metoprolol Tartrate 12.5 mg BID PO 08/06/25 10:00 08/08/25 10:46 12.5 MG Enoxaparin Sodium 50 mg Q12HR SC 08/06/25 22:00 08/08/25 03:18 50 MG Insulin Human Lispro AC SC 08/06/25 17:00 08/07/25 06:48 2 UNITS Diagnostic Test (Pha) 1 strip ACHS 08/06/25 17:00 08/08/25 06:52 1 STRIP Polyethylene Glycol 17 gm DAILY PO 08/07/25 10:00 08/07/25 09:31 17 GM Donepezil HCl 10 mg HS PO 08/06/25 22:00 08/07/25 19:39 10 MG Atorvastatin Calcium 40 mg HS PO 08/06/25 22:00 08/07/25 19:38 40 MG Cefepime HCl 50 ml @ 12.5 mls/hr Q12H IV 08/07/25 14:00 08/08/25 03:18 12.5 MLS/HR Examination: GENERAL:Abnormal, HEENT:Abnormal, LUNGS:Abnormal, CVS:Abnormal, ABDOMEN:Abnormal laboratory and microbiology Laboratory Tests 08/08/25 05:30 Test 08/08/25 05:30 Range/Units Serum Glucose 125 H 74-106 mg/dL Microbiology Date/Time Source Procedure Growth Status 08/06/25 18:28 Nose MRSA Screen - Final Complete 08/05/25 14:56 Blood Blood Culture - Preliminary NO GROWTH AFTER 48 HOURS OF INCUBATION. Resulted Problem List/Assessment/Plan Problem List/Assessment/Plan left atrial thrombus vs mass AMS ?dementia ckd afib rvr severe chf randa tomorrow cont lovenox and amio pt has poor prognosis, consider goals of care randa shows large thrombus in LA will need doac and asa very high cva/embolic risk , highest possible risk for any pt read randa report for details Plan discussed with: Patient Dietary Evaluation Review Recommendations by RD: Dietary education by RD Comments: 1) Add 2g Na restriction to 60g CCHO diet 2) Encourage patient to limit intake of added sugar including sugar-sweetened beverages, desserts, candy, etc. Aim for a consistent intake of complex carbohydrates throughout the day, paired with protein to promote glycemic control 3) Refer to outpatient RD/CDCES for ongoing diabetes education 4) Follow-up with cardiology and neurology 5) Continue to monitor I&O, labs, and skin integrity Expected Outcomes/Goals: 1) appetite and labs to improve 2) f/u in 3-5 days Date of Service: Aug 08, 2025 Billing Provider: NINA QUINONEZ MD Common Visit Codes: NOT BILLABLE NINA QUINONEZ MD Aug 08, 2025 11:54
--- NOTE | 2025-08-08 13:46 | DVHPN2 ---
Assessment/Plan Assessment/Plan progress note 79 F w IDDM, alzheimers, osteoarthritis, afib on Eliquis, CKD 2, HTN admitted for afib w RVR, started on amio drip seen today, JEAN today, rate controlled. showed LA thrombus. c/w lovenox, will downgrade to tele and switch to eliquis. also switching to Po amio. plan for fam conf tomorrow at 3 physical exam aox3 b/l rhonchi s1 s2 irregular abdomen soft, suprapubic tenderness no LE edema labs ekg imaging reviewed POCUS done, preserved contractility, mass in LA, IVC normal assessment and plan afib RVR sepsis chronic diastolic HF LA mass? possible PNA gp gn acute bact cystitis alzheimers osteoarthritis CKD 2 lactic acidosis HLD osteoarthritis ex smoker amio for rate control o2 supp maintain >90% lovenox therapeutic cefepime follow urine culture iv bolus start amio po resume home meds basal bolus ISS follow cardio rec JEAN done dg to tele diet cardiac diabetic dvt ppx full lovenox full code Plan discussed with: Patient My Orders Orders - YOLANDA BACK MD Procedure Category Date Status Time Npo (Nothing By DIET 08/08/25 Transmitted Mouth) Diet Breakfast Date of Service: Aug 08, 2025 Billing Provider: YOLANDA BACK MD Common Visit Codes: [id number] CARE 30-74 MIN YOLANDA BACK MD Aug 08, 2025 13:46
[2025-08-08] MEDS: AMIODARONE HCL 200 MG TAB PO SCH (22:02)
[2025-08-09] VITALS (9 sets, daily range): BP systolic 92–116; BP diastolic 2–77; PULSE 57–107; RESP 14–18; TEMP 95.5–98.1; O2SAT 96–99
[2025-08-09 06:40] LABS: Hematocrit 45.7 % (36.0-46.0); Hemoglobin 15.8 g/dL (12.2-16.2); Mean Corpuscular Hemoglobin 33.5 pg (28.0-32.0); Mean Corpuscular Volume 97.0 fL (80.0-100.0); Nucleated Red Blood Cells % 0.8 %
[2025-08-09 06:56] LABS: Alanine Aminotransferase 13 U/L (7-40); Alkaline Phosphatase 106 U/L (46-116); Anion Gap 11 (5-15); BUN/Creatinine Ratio 13.2 (10.0-20.0); Carbon Dioxide 25 mmol/L (20-31); Glucose 95 mg/dL (74-106); Magnesium 1.7 mg/dL (1.6-2.6)
[2025-08-09 06:57] LABS: Bilirubin, Total 0.6 mg/dL (0.2-1.0)
[2025-08-09 06:58] LABS: Albumin 2.6 g/dL (3.2-4.8); Blood Urea Nitrogen 7 mg/dL (9-23); Calcium 8.2 mg/dL (8.7-10.4); Chloride 97 mmol/L (98-107); Potassium 3.3 mmol/L (3.5-5.1); Sodium 133 mmol/L (136-145); Total Protein 5.4 g/dL (5.7-8.2)
--- NOTE | 2025-08-09 15:08 | DVHPN2 ---
Assessment/Plan Assessment/Plan progress note 79 F w IDDM, alzheimers, osteoarthritis, afib on Eliquis, CKD 2, HTN admitted for afib w RVR, started on amio drip seen today, fam conf today. switch to po amio. plan for dc tomorrow physical exam aox3 b/l rhonchi s1 s2 irregular abdomen soft, suprapubic tenderness no LE edema labs ekg imaging reviewed POCUS done, preserved contractility, mass in LA, IVC normal assessment and plan afib RVR sepsis chronic diastolic HF LA mass? possible PNA gp gn acute bact cystitis alzheimers osteoarthritis CKD 2 lactic acidosis HLD osteoarthritis ex smoker amio for rate control o2 supp maintain >90% lovenox therapeutic cefepime follow urine culture iv bolus start amio po resume home meds basal bolus ISS follow cardio rec JEAN done dg to tele diet cardiac diabetic dvt ppx full lovenox full code Plan discussed with: Patient Date of Service: Aug 09, 2025 Billing Provider: YOLANDA BACK MD Common Visit Codes: [id number] INP/OBS CARE(HIGH) YOLANDA BACK MD Aug 09, 2025 15:08
[2025-08-09] MEDS: POTASSIUM EFFERVESENT TAB 25 MEQ PO ONE (16:55)
[2025-08-10 00:39] VITALS: BP 107/73; PULSE 57; RESP 16; TEMP 97.8; O2SAT 90
[2025-08-10 05:03] VITALS: BP 100/61; PULSE 112; RESP 20; TEMP 97.5; O2SAT 90
[2025-08-10 06:26] LABS: Anion Gap 11 (5-15); Carbon Dioxide 24 mmol/L (20-31); Chloride 98 mmol/L (98-107)
[2025-08-10 06:32] LABS: BUN/Creatinine Ratio 17.4 (10.0-20.0); Glucose 87 mg/dL (74-106)
[2025-08-10 06:33] LABS: Blood Urea Nitrogen 8 mg/dL (9-23); Calcium 8.3 mg/dL (8.7-10.4); Potassium 3.2 mmol/L (3.5-5.1); Sodium 133 mmol/L (136-145)
--- NOTE | 2025-08-10 07:53 | ECG ---
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
[2025-08-10 08:00] VITALS: PULSE 103
[2025-08-10] MEDS ORDERED: AMIO200T33 PO ×2 (08:32)
[2025-08-10] MEDS ORDERED: MET25T PO ×2 (08:33)
[2025-08-10] MEDS ORDERED: FURO20TA3 PO ×2 (08:33)
[2025-08-10] MEDS ORDERED: APIX2.5T PO ×2 (08:33)
[2025-08-10] MEDS ORDERED: SENN8.6C PO ×2 (08:33)
[2025-08-10] MEDS ORDERED: INSU100I4 SC ×2 (08:33)
[2025-08-10] MEDS ORDERED: ATOR20TA50 PO ×2 (08:33)
--- NOTE | 2025-08-10 08:36 | DVHDS2 ---
Discharge Summary Date of Admission Aug 05, 2025 at 21:28 Date of Discharge: Aug 10, 2025 Labs/Diagnostic Data: Laboratory Results Test 08/10/25 06:01 08/10/25 05:09 08/09/25 06:01 08/06/25 05:54 POC Glucose 98 mg/dl (70-106) Sodium Level 133 mmol/L (136-145) Potassium Level 3.2 mmol/L (3.5-5.1) Chloride Level 98 mmol/L (98-107) Carbon Dioxide Level 24 mmol/L (20-31) Anion Gap 11 (5-15) Blood Urea Nitrogen 8 mg/dL (9-23) Creatinine 0.46 mg/dL (0.550-1.02) Glomerular Filtration Rate Calc 96 mL/min (>90) BUN/Creatinine Ratio 17.4 (10.0-20.0) Serum Glucose 87 mg/dL (74-106) Calcium Level 8.3 mg/dL (8.7-10.4) White Blood Count 5.4 10^3/uL (4.4-10.8) Red Blood Count 4.71 10^6/uL (4.0-5.20) Hemoglobin 15.8 g/dL (12.2-16.2) Hematocrit 45.7 % (36.0-46.0) Mean Corpuscular Volume 97.0 fL (80.0-100.0) Mean Corpuscular Hemoglobin 33.5 pg (28.0-32.0) Mean Corpuscular Hemoglobin Concent 34.5 g/dL (32.0-36.0) Red Cell Distribution Width 17.7 % (11.8-14.3) Platelet Count 206 10^3/uL (140-450) Mean Platelet Volume 8.7 fL (6.9-10.8) Neutrophils (%) (Auto) 62.3 % (37.0-80.0) Lymphocytes (%) (Auto) 20.5 % (10.0-50.0) Monocytes (%) (Auto) 12.6 % (0.0-12.0) Eosinophils (%) (Auto) 3.4 % (0.0-7.0) Basophils (%) (Auto) 1.2 % (0.0-2.0) Neutrophils # (Auto) 3.4 10 ^3/uL (1.6-8.6) Lymphocytes # (Auto) 1.1 10 ^3/uL (0.4-5.4) Monocytes # (Auto) 0.7 10 ^3/uL (0-1.3) Eosinophils # (Auto) 0.2 10 ^3/uL (0-0.8) Basophils # (Auto) 0.1 10 ^3/uL (0-0.2) Nucleated Red Blood Cells 0.8 % Phosphorus Level 2.0 mg/dL (2.4-5.1) Magnesium Level 1.7 mg/dL (1.6-2.6) Total Bilirubin 0.6 mg/dL (0.2-1.0) Aspartate Amino Transferase (AST) 26 U/L (13-40) Alanine Aminotransferase (ALT) 13 U/L (7-40) Alkaline Phosphatase 106 U/L (46-116) Total Protein 5.4 g/dL (5.7-8.2) Albumin 2.6 g/dL (3.2-4.8) Hemoglobin A1c 8.7 % A1C (<5.7) B-Type Natriuretic Peptide 188.13 pg/mL (0-100) Triglycerides Level 136 mg/dL (< 150) Cholesterol Level 218 mg/dL (< 200) LDL Cholesterol 183 mg/dL (< 100) HDL Cholesterol 25 mg/dL (40-59) Thyroid Stimulating Hormone (TSH) 4.76 uIU/mL (0.55-4.78) Test 08/05/25 22:15 08/05/25 21:21 08/05/25 16:58 08/05/25 14:57 Urine Color Dark yellow (Yellow) Urine Clarity Ex.turbid (Clear) Urine pH 5.5 (5.0-9.0) Urine Specific [place] 1.031 (1.001-1.035) Urine Protein 2+ (Negative) Urine Ketones 1+ (Negative) Urine Blood 2+ /uL (Negative) Urine Nitrite Negative (Negative) Urine Bilirubin Negative (Negative) Urine Urobilinogen Normal mg/dL (Negative) Urine Leukocyte Esterase 3+ /uL (Negative) Urine RBC 112 /hpf (0 - 4) Urine Microscopic WBC 1681 /HPF (0-5) Urine Squamous Epithelial Cells None seen /hpf (<5) Urine Bacteria None seen /hpf (None Seen) Urine Glucose 2+ mg/dL (Normal) Blood Gas Specimen Type Arterial Blood Gas Sample Site Left brachial Blood Gas Patient Temperature 37.0 Arterial Blood Date Drawn [id number] Arterial Blood pH 7.438 (7.350-7.450) Arterial Blood Partial Pressure CO2 26.8 mmHg (32.0-45.0) Arterial Blood Partial Pressure O2 81.8 mmHg (83.0-108.0) Arterial Blood HCO3 17.7 mmol/L (21.0-28.0) Arterial Blood Oxygen Saturation 96.4 % (94.0-98.0) Arterial Blood Base Excess -4.4 mmol/L (-2.0-3.0) Arterial Blood Oxyhemoglobin 95.4 % (94.0-98.0) Arterial Blood Carboxyhemoglobin 0.4 % (0.5-1.5) Arterial Blood Methemoglobin 0.6 % (0.0-1.5) Deny Test Yes Blood Gas Total Hemoglobin 17.70 g/dL (12.0-16.0) Blood Gas Liter Flow 3.00 Blood Gas Modality Nasal cannula FiO2 % 32.0 Blood Gas Critical Value Read Back Yes Lactic Acid Level 2.7 mmol/L (0.4-2.0) Troponin I High Sensitivity 3 ng/L (</=34) Differential Total Cells Counted 100.0 (100) Neutrophils % (Manual) 65 (37.0-80.0) Band Neutrophils % (Manual) 2 Lymphocytes % (Manual) 27 (10.0-50.0) Monocytes % (Manual) 5 (0-12) Eosinophils % (Manual) 1 (0-7) Basophils % (Manual) 0 (0.0-2.0) Metamyelocytes % (manual) 0 Myelocytes % (Manual) 0 Promyelocytes % (Manual) 0 Blast Cells % (Manual) 0 Reactive Lymphocytes 0 Platelet Estimate F Prothrombin Time 13.3 sec (9.3-11.8) Prothrombin Time INR 1.29 (0.9-1.15) Activated Partial Thromboplast Time 27.4 SEC (24.5-34.5) Other Laboratory Tests 08/10/25 05:09 08/09/25 06:01 Brief Hx & Hospital Course: 79 F w IDDM, alzheimers, osteoarthritis, afib on Eliquis, CKD 2, HTN admitted for afib w RVR, started on amio drip. pocus showed mass in LA, seen by cardio, switched to oral amio, also has JEAN showed LA thrombus. had family discussion for goals of care, no code status changes but opt with blood thinner and family understands poor prognosis. stable to dc home. good fam support. Condition at Discharge: Stable Final Diagnosis/Problems List afib RVR sepsis chronic diastolic HF LA thrombus possible PNA gp gn acute bact cystitis alzheimers osteoarthritis CKD 2 lactic acidosis HLD osteoarthritis ex smoker Discharge Disposition: Home Discharge Instruct/Medications Diet: Regular Activity: No Restrictions, As Tolerated Follow Up/Referral: pcp dc clinic Medications: eliquis insulin sliding scale lopressor amiodarone Scheduled Amiodarone Hcl (Amiodarone Hcl), 200 MG PO BID Apixaban Base (Eliquis), 2.5 MG PO BID Cyanocobalamin (Vitamin B-12), 1,000 MCG PO DAILY, (Reported) Donepezil Hydrochloride (Donepezil Hcl), 1 TAB PO HS, (Reported) Empagliflozin (Jardiance), 25 MG PO DAILY, (Reported) Furosemide (Furosemide), 1 TAB PO DAILY Glipizide-Metformin HCl (Glipizide/Metformin HCl 5-500 mg), 1 TAB PO DAILY, (Reported) Insulin Glargine (Lantus), 22 UNIT SC HS, (Reported) Insulin Lispro (Insulin Lispro), 100 UNIT IJ AC, (Reported) Insulin Lispro (Humalog Kwikpen), 100 UNIT SC ACHS Ipratropium-Albuterol (Ipratropium [place]/Albut), 1 LEXX IN Q6HP, (Reported) Metoprolol Tartrate (Metoprolol Tartrate), 50 MG PO BID, (Reported) Metoprolol Tartrate (Lopressor), 12.5 MG PO Q12HR Sitagliptin Phosphate (Januvia), 1 TAB PO DAILY, (Reported) Spironolactone (Spironolactone), 1 TAB PO DAILY, (Reported) Valsartan (Diovan), 24 MG PO BID, (Reported) Scheduled PRN Bisacodyl (Dulcolax), 10 MG RE for FOR CONSTIPATION, (Reported) Sennosides (Senna), 8.6 MG PO DAILYP PRN Miscellaneous Medications Dapagliflozin Propanediol (Dapagliflozin Propanediol), 10 MG PO, (Reported) Discharge Statement: "Patient was advised to return to the ER or call 911 if any headaches, dizziness, shortness of breath, chest pain, abdominal pain, bleeding, fevers, or worsening of medical condition. Patient was counseled about treatment plan, medications, possible side effects, patientverbalized understanding. All questions were answered to the best of my ability. This discharge took greater then 30 minutes in planning, reviewing documentation, counseling the patient, and discussing with other team members." ASSESSMENT ASSESSMENT Assessment afib with RVR LA thrombus Date of Service: Aug 10, 2025 Billing Provider: YOLANDA BACK MD Common Visit Codes: 88413-NIV/OBS DISCH DAY >30min YOLANDA BACK MD Aug 10, 2025 08:36
[2025-08-10 09:00] VITALS: BP 93/70; PULSE 52; RESP 16; TEMP 97.5; O2SAT 97
[2025-08-10] MEDS: POTASSIUM EFFERVESENT TAB 25 MEQ PO ONE (09:55)
[2025-08-10 12:51] VITALS: BP 99/71; PULSE 91; RESP 16; TEMP 97.9; O2SAT 99
[2025-08-10 17:00] VITALS: BP 98/60; PULSE 85; RESP 14; TEMP 97.9; O2SAT 99
[2025-08-10] MEDS ORDERED: IOHEXOL 350 MG/ML 100ML IJ ONE (20:54)
== END 2025-08-10 18:07 | disposition home or self-care (01) | DRG 309 ==
LOC: ER 14:29 → OVERFLOW 21:28 → DOU 08-06 18:22 → TELE-WESTW 08-09 05:02
PROVIDERS: ADMIT Student in an Organized Health Care Education/Training Program; ATTEND Student in an Organized Health Care Education/Training Program
PROC: B24BZZ4 Ultrasonography of Heart with Aorta, Transesophageal (ICD-10-PCS; principal; 2025-08-08)
DX: I48.91 Unspecified atrial fibrillation (principal); E87.20 Acidosis, unspecified; I50.32 Chronic diastolic (congestive) heart failure; I13.0 Hypertensive heart and chronic kidney disease with heart failure and stage 1 through stage 4 chronic kidney disease, or unspecified chronic kidney disease; E11.22 Type 2 diabetes mellitus with diabetic chronic kidney disease; E78.5 Hyperlipidemia, unspecified; G30.9 Alzheimer's disease, unspecified; N18.2 Chronic kidney disease, stage 2 (mild); N30.90 Cystitis, unspecified without hematuria; M19.09 Primary osteoarthritis, other specified site; F02.80 Dementia in other diseases classified elsewhere, unspecified severity, without behavioral disturbance, psychotic disturbance, mood disturbance, and anxiety; I51.3 Intracardiac thrombosis, not elsewhere classified; Z87.891 Personal history of nicotine dependence; Z79.4 Long term (current) use of insulin; Z79.01 Long term (current) use of anticoagulants
CPT/HCPCS: 36415; 36600; 71045; 80048; 80053; 80061; 81001; 82805; 82962; 83036; 83605; 83735; 83880; 84100; 84443; 84484; 85007; 85025; 85027; 85610; 85730; 87040; 87081; 93005; 93306; 93312; 96361; 96365; 96367; 99152; 99291; 99292; G0378; J1815; J2250; J2405

== ENCOUNTER 2025-08-10 20:28 | Emergency (ER) | payer OTHER, MEDICAID ==
[~2025-08-10] VITALS: Ht 152.4 cm; Wt 68.2 kg
[~2025-08-10 20:28] MED LIST: AMIO200T33 PO; APIX2.5T PO; ATOR20TA50 PO; BISA10SU45 RE; CYAN100088 PO; DAPA10TA3 PO; DONE1TAB88 PO; EMPA1TAB3 PO; FURO20TA3 PO; GLIP5TAB5 PO; INSLANTI SC; INSU100I4 SC; INSU100I52 IJ; IPRA0.00 IN; MET25T PO; METO-158 PO; SENN8.6C PO; SITA50TA PO; SPIR25TA8 PO; VALS40TA2 PO
--- NOTE | 2025-08-10 20:43 | ED.PDOC ---
SOB-HPI HPI Comments 79 year old female presents to the ED via EMS with a chief complaint of shortness of breath onset today (08/10/25). Per EMS, 911 was called due to patient experiencing shortness of breath, upon their arrival patient was unresponsive, only responsive to painful stimuli, O2 sat was 78% on RA placed on NRB 10L O2 sat improved 94%. Per EMS, patient was [facility] today around 17:00. Last seen normal was around 19:50, patient took her medications, went to bed. In route to ED, EKG was done by EMS, showed a-fib, RVR, 150 bpm, BP was 98 systolic, BG was 121. discharge summary 08/10/25 79 F w IDDM, alzheimers, osteoarthritis, afib on Eliquis, CKD 2, HTN admitted for afib w RVR, started on amio drip. pocus showed mass in LA, seen by cardio, switched to oral amio, also has JEAN showed LA thrombus. had family discussion for goals of care, no code status changes but opt with blood thinner and family understands poor prognosis. stable to dc home. good fam support. 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 Pertinent FLAT SORTING MACHINE CLERK History Family History Family History: Reviewed,noncontributory to illness Social History Smoker: Non-Smoker Alcohol: Denies ETOH Use Drugs: Denies Drug Use Lives In: Home Unable to Obtain due to: Medical Urgency Physical Exam Exam Comments elderly, nonverbal General Appearance: Moderate Distress HEENT: Normal ENT Inspection, Pharynx Normal, TMs Normal Neck: Full Range of Motion, Non-Tender, Normal, Normal Inspection Respiratory: Chest Non-Tender, Lungs Clear, No Accessory Muscle Use, No Respiratory Distress, Normal Breath Sounds Cardiovascular: No Edema, No JVD, No Murmur, No Gallop, Normal Peripheral Pulses, Regular Rate/Rhythm Breast Exam: Deferred Gastrointestinal: No Organomegaly, Non Tender, No Pulsatile Mass, Normal Bowel Sounds, Soft Genitalia: Deferred Pelvic: Deferred Rectal: Deferred Extremities: No calf tenderness, Normal capillary refill, Normal inspection, Normal range of motion, Non-tender, No pedal edema Musculoskeletal : Apperance: Normal Neurologic: Aphasia, Disoriented, Other (NIH Stroke Scale/Score ([facility]HSS) [email or web address] on 08/10/2025) Cerebellar Function: Normal Reflexes: Normal Skin: Dry, Normal Color, Warm Lymphatic: No Adenopathy Was a procedure done? Was a procedure done?: No Differential Dx Differential Diagnosis: Cardiogenic Shock, CHF, COPD, Myocardial infarction, Pneumonia, Pulmonary Embolism, URI, Other X-Ray, Labs, Meds, VS Vital Signs Date Time Temp Pulse Resp B/P (MAP) Pulse Ox O2 Delivery O2 Flow Rate FiO2 08/10/25 21:40 161 20 100 08/10/25 20:31 130 08/10/25 20:30 127 12 129/90 94 Lab Test 08/10/25 21:30 08/10/25 20:40 08/10/25 20:37 Range/Units Troponin I High Sensitivity Pending 4 </=34 ng/L White Blood Count 9.1 # 4.4-10.8 10^3/uL Red Blood Count 4.94 4.0-5.20 10^6/uL Hemoglobin 16.4 H 12.2-16.2 g/dL Hematocrit 49.8 H 36.0-46.0 % Mean Corpuscular Volume 100.8 H 80.0-100.0 fL Mean Corpuscular Hemoglobin 33.3 H 28.0-32.0 pg Mean Corpuscular Hemoglobin Concent 33.0 32.0-36.0 g/dL Red Cell Distribution Width 18.1 H 11.8-14.3 % Platelet Count 210 140-450 10^3/uL Mean Platelet Volume 8.7 6.9-10.8 fL Neutrophils (%) (Auto) 54.4 37.0-80.0 % Lymphocytes (%) (Auto) 36.0 10.0-50.0 % Monocytes (%) (Auto) 7.9 0.0-12.0 % Eosinophils (%) (Auto) 1.0 0.0-7.0 % Basophils (%) (Auto) 0.7 0.0-2.0 % Neutrophils # (Auto) 5.0 1.6-8.6 10 ^3/uL Lymphocytes # (Auto) 3.3 0.4-5.4 10 ^3/uL Monocytes # (Auto) 0.7 0-1.3 10 ^3/uL Eosinophils # (Auto) 0.1 0-0.8 10 ^3/uL Basophils # (Auto) 0.1 0-0.2 10 ^3/uL Nucleated Red Blood Cells 0.6 % Prothrombin Time 13.2 H 9.3-11.8 sec Prothrombin Time INR 1.28 H 0.9-1.15 Activated Partial Thromboplast Time 31.0 24.5-34.5 SEC Sodium Level 135 L 136-145 mmol/L Potassium Level 3.5 3.5-5.1 mmol/L Chloride Level 99 98-107 mmol/L Carbon Dioxide Level 20 20-31 mmol/L Anion Gap 16 H 5-15 Blood Urea Nitrogen 9 9-23 mg/dL Creatinine 0.65 # 0.550-1.02 mg/dL Glomerular Filtration Rate Calc 88 >90 mL/min BUN/Creatinine Ratio 13.8 10.0-20.0 Serum Glucose 111 H 74-106 mg/dL Lactic Acid Level 4.1 *H 0.4-2.0 mmol/L Calcium Level 8.4 L 8.7-10.4 mg/dL Magnesium Level 1.9 1.6-2.6 mg/dL Total Bilirubin 0.9 0.2-1.0 mg/dL Aspartate Amino Transferase (AST) 52 H 13-40 U/L Alanine Aminotransferase (ALT) 22 7-40 U/L Alkaline Phosphatase 118 H 46-116 U/L B-Type Natriuretic Peptide 209.58 0-100 pg/mL Total Protein 6.0 5.7-8.2 g/dL Albumin 2.8 L 3.2-4.8 g/dL Blood Gas Specimen Type Arterial Blood Gas Sample Site Right brachial Blood Gas Patient Temperature 37.0 Arterial Blood Date Drawn [id number] Arterial Blood pH 7.403 7.350-7.450 Arterial Blood Partial Pressure CO2 25.1 L 32.0-45.0 mmHg Arterial Blood Partial Pressure O2 312.1 *H 83.0-108.0 mmHg Arterial Blood HCO3 15.3 L 21.0-28.0 mmol/L Arterial Blood Oxygen Saturation 99.5 H 94.0-98.0 % Arterial Blood Base Excess -7.1 L -2.0-3.0 mmol/L Arterial Blood Oxyhemoglobin 98.9 H 94.0-98.0 % Arterial Blood Carboxyhemoglobin 0.1 L 0.5-1.5 % Arterial Blood Methemoglobin 0.5 0.0-1.5 % Deny Test N/a Blood Gas Total Hemoglobin 17.70 H 12.0-16.0 g/dL Blood Gas Liter Flow 15.00 Blood Gas Modality Mask - nrb Blood Gas Spontaneous Rate 24 FiO2 % 100.0 Blood Gas Critical Value Read Back Yes Blood Gas Notified Whom Dr. shmuel leonardo Blood Gas Notified Time [id number] Blood Gas Notified By Hussein medina [employer] system administrator Time of 1ST Reevaluation: 20:57 Reevaluation 1ST: Unchanged Patient Education/Counseling: Pt Unresponsive Family Education/Counseling: Diagnosis, Treatment, Prognosis SEPSIS Sepsis Screen Physician Orders Electrocardigram (08/10/25 20:34) Electrocardigram (08/10/25 21:34) Electrocardigram (08/10/25 23:34) Vital Signs .PER UNIT PROTOCOL (08/10/25 20:38) Jeweler Apprentice (08/10/25 20:38) Accurate Weight In Kg (08/10/25 20:38) Accucheck (08/10/25 20:38) Ct Head Cva (08/10/25 20:38) Angio Head/Neck (08/10/25 20:38) Chest Xray 1 View (08/10/25 20:38) Nursing Dysphagia Screen (08/10/25 20:38) Troponin-I Hs (08/10/25 21:38) Troponin-I Hs (08/10/25 23:38) Jeweler Apprentice (08/10/25 20:40) Pulse Oximetry (08/10/25 20:40) Abg W/ Co-Ox (08/10/25 20:30) Blood Culture (08/10/25 21:04) Type And Screen (08/10/25 21:04) Midazolam Drip 50 Mg/50ml (Versed Drip 5 (08/10/25 21:30) Fentanyl Drip 2500mcg/250mlns (08/10/25 21:30) Rass Sedation Scale Q1HR (08/10/25 21:29) Rocuronium [place] (10/1/25 21:30) Vent Ip Init (08/10/25 21:40) Respiratory Culture W/ Gs (08/10/25 21:40) Abg W/ Co-Ox (08/10/25 22:40) Vital Signs Date Time Temp Pulse Resp B/P (MAP) Pulse Ox O2 Delivery O2 Flow Rate FiO2 08/10/25 21:40 161 20 100 08/10/25 20:31 130 08/10/25 20:30 127 12 129/90 94 Laboratory Tests Test 08/10/25 20:40 Lactic Acid Level 4.1 mmol/L (0.4-2.0) *H White Blood Count 9.1 10^3/uL (4.4-10.8) # Departure 1 Departure Time of Disposition: 22:26 Impression: Primary Impression: Altered mental status Additional Impressions: Embolic stroke Atrial fibrillation Disposition: 02 SHORT TERM [facility]OSPITAL Condition: Critical Comments 79-year-old female brought in by ambulance after she developed labored breathing and altered mental status at home. Patient was just recently discharged home with a left atrial thrombus and was started on Eliquis blood thinners. Upon arrival patient was altered and not speaking but arousable to voice. Patient had no focal deficit was and was moving all extremities. Patient was not given tPA due to lack of focal deficits. Her NIHSS score was: NIH Stroke Scale/Score (NIHSS) from [email or web address] on 08/10/2025 RESULT SUMMARY: 11 points NIH Stroke Scale INPUTS: 1A: Level of consciousness > 2 = Requires repeated stimulation to arouse 1B: Ask month and age > 2 = 0 questions right 1C: 'Blink eyes' & 'squeeze hands' > 2 = Performs 0 tasks 2: Horizontal extraocular movements > 0 = Normal 3: Visual nielson > 0 = No visual loss 4: Facial palsy > 0 = Normal symmetry 5A: Left arm motor drift > 0 = No drift for 10 seconds 5B: Right arm motor drift > 0 = No drift for 10 seconds 6A: Left leg motor drift > 0 = No drift for 5 seconds 6B: Right leg motor drift > 0 = No drift for 5 seconds 7: Limb Ataxia > 0 = Does not understand 8: Sensation > 0 = Normal; no sensory loss 9: Language/aphasia > 3 = Mute/global aphasia: no usable speech/auditory comprehension 10: Dysarthria > 2 = Mute/anarthric 11: Extinction/inattention > 0 = No abnormality Patient was intubated for airway protection. A central line was placed. CT angio of the head and neck shows a left M1 arterial occlusion. I contacted [facility] and the patient will be transferred for large vessel occlusion/embolic stroke. Critical Care Note Critical Care Time?: Yes (35 min-critical care time only) Critical care comment: Total critical care time: Approximately 36 minutes Due to a high probability of clinically significant, life threatening deterioration, the patient required my highest level of preparedness to intervene emergently and I personally spent this critical care time directly and personally managing the patient. This critical care time included obtaining a history; examining the patient; pulse oximetry; ordering and review of studies; arranging urgent treatment with development of a management plan; evaluation of patient's response to treatment; frequent reassessment; and, discussions with other providers. This critical care time was performed to assess and manage the high probability of imminent, life-threatening deterioration that could result in multi-organ failure. It was exclusive of separately billable procedures and treating other patients. Stability Stability form required: No Heart Score Heart Score: Heart Score Response (Comments) Value History N/A 0 EKG N/A 0 Age N/A 0 Risk Factors N/A 0 Troponin N/A 0 Total 0 I personally scribed for AALIYAH LEONARDO MD ([email or web address]) on 08/10/25 at 20:43. Electronically submitted by Nano Davis ([email or web address]). AALIYAH LEONARDO MD Aug 10, 2025 20:43
[2025-08-10 20:59] LABS: Hematocrit 49.8 % (36.0-46.0); Hemoglobin 16.4 g/dL (12.2-16.2); Mean Corpuscular Hemoglobin 33.3 pg (28.0-32.0); Mean Corpuscular Volume 100.8 fL (80.0-100.0); Nucleated Red Blood Cells % 0.6 %
[2025-08-10 21:08] LABS: Base Excess -7.1 mmol/L (-2.0-3.0)
[2025-08-10 21:14] LABS: INR 1.28 (0.9-1.15); Partial Thromboplastin Time 31.0 SEC (24.5-34.5); Prothrombin Time 13.2 sec (9.3-11.8)
[2025-08-10] MEDS: IOHEXOL 350 MG/ML 100ML IJ ONE ×2 (21:16→21:19)
[2025-08-10 21:18] LABS: Alanine Aminotransferase 22 U/L (7-40); Anion Gap 16 (5-15); BUN/Creatinine Ratio 13.8 (10.0-20.0); Blood Urea Nitrogen 9 mg/dL (9-23); Chloride 99 mmol/L (98-107); Magnesium 1.9 mg/dL (1.6-2.6); Total Protein 6.0 g/dL (5.7-8.2)
[2025-08-10 21:19] LABS: Bilirubin, Total 0.9 mg/dL (0.2-1.0)
[2025-08-10 21:28] LABS: Albumin 2.8 g/dL (3.2-4.8); Alkaline Phosphatase 118 U/L (46-116); Calcium 8.4 mg/dL (8.7-10.4); Carbon Dioxide 20 mmol/L (20-31); Glucose 111 mg/dL (74-106); Potassium 3.5 mmol/L (3.5-5.1); Sodium 135 mmol/L (136-145)
[2025-08-10 21:30] VITALS: O2SAT 97
[2025-08-10] MEDS: ETOMIDATE (2MG/ML) 20ML VIAL IV ONE ×3 (21:30→21:38)
[2025-08-10] MEDS: ROCURONIUM 10MG/ML 10ML VIAL IV ONE ×3 (21:30→21:38)
[2025-08-10] MEDS: fentaNYL Drip 2500mCg/250mlNS 250 ML IV ONE (21:33)
[2025-08-10] MEDS: MIDAZOLAM DRIP 50 mg/50mL 50 ML IV ONE (21:33)
[2025-08-10] MEDS: MIDAZOLAM DRIP 50 mg/50mL 50 ML IV SCH (21:50)
[2025-08-10] MEDS: fentaNYL Drip 2500mCg/250mlNS 250 ML IV SCH (21:50)
[2025-08-10 21:57] LABS: Lactic Acid w/Reflex 4.1 mmol/L (0.4-2.0)
--- NOTE | 2025-08-10 21:59 | DVH ---
Procedure: CT STROKE [facility] Study Date and Requested Time: 08/10/2025 08:59 PM History: ALOC Comparison: None Dose: CTDI: 59.41 mGy DLP: 1.71 mGycm Technique: Multiplanar images obtained through the brain without intravenous contrast. Findings: Moderate Diffuse brain atrophy. Mild chronic small vessel ischemic changes. No hemorrhages, masses, mass effect, midline shift, herniation or cytotoxic edema following a large v ascular territory. No intra-axial or extra-axial fluid collections. No evidence of hydrocephalus. The basal cisterns are patent. The pituitary gland, sella and parasellar regions are unremarkable. The cerebellar tonsils are in nor mal position. The cerebellum is unremarkable. The orbits and globes are unremarkable. Mild mucoperiosteal thickening of the ethmoid air cells, left frontal sinus and left maxillary sinus. The remainder of the paranasal sinuses are clear. Near-com plete Opacification The bilateral mastoids with the opacification of bilateral middle ears. There are no worrisome calvarial lesions. Impression: No evidence of acute intracranial abnormality. Bilateral otomastoiditis. Critical Result: Stroke Alert Findings discussed with AALIYAH LEONARDO at 08/10/2025 09:56 PM, and acknowledged receipt and understa nding of the findings. ..
--- NOTE | 2025-08-10 22:10 | DVH ---
INDICATION: ALOC COMPARISON: CT STROKE CTH on DOS: 08/10/25 TECHNIQUE: CTA head without and with intravenous contrast. CTA neck with intravenous contrast. 3D image postprocessing was performed on a dedicated workstation and images were used for interpretation and reporting. Radiation Dose Information: CT Dose: CTDI volume is 21.54 mGy. Dose-length product is 858.36 mGy*cm FINDINGS: The caliber and course of the distal internal carotid arteries is unremarkable. There is occlusion of the proximal left M1 segment of the middle cerebral artery, with diminutive opacification seen throu ghout the distal left middle cerebral artery vasculature. The basilar artery is patent. The right elizabeth tebral artery is dominant. The left vertebral artery is diminutive. There is no aneurysm. The visualized thoracic aortic arch and proximal great vessels are unremarkable. The left common, int ernal and external carotid arteries are within normal limits. The right common, internal and external carotid arteries are within normal limits. Dominant right vertebral artery. Diminutive left vertebr al artery. The limited visualized lung apices are clear. The surrounding soft tissues and osseous str uctures are otherwise unremarkable. IMPRESSION: 1. 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 All CT scans at this medical facility are performed using dose modulation techniques as appropriate t o a performed exam including the following: Automated exposure control was utilized; adjustment of th e MA and/or KV according to patient size; and use of iterative reconstruction technique. Findings discussed with AALIYAH LEONARDO at 08/10/2025 10:07 PM, and acknowledged receipt and understa nding of the findings.
[2025-08-10] MEDS: SODIUM CHLORIDE 0.9% 1,000 ML IV ONE (22:33)
[2025-08-10] MEDS: METOPROLOL TARTRATE 1MG/1ML-5ML VIAL IV ONE (22:57)
--- NOTE | 2025-08-10 23:02 | DVH ---
CLINICAL HISTORY: SOB TECHNIQUE: Single view of the chest was obtained. COMPARISON: TRANSESOPH ECHOCARDIOGRAM on DOS: 08/08/25, XY CHEST PORTABLE on DOS: 08/05/25 FINDINGS: PA an endotracheal tube terminates 4.7 cm above the rima. A right IJ line terminates within the rig ht atrium. Nasogastric tube enters the stomach and courses beyond the edge of the image. The heart size and pulmonary vasculature are normal. There is a trace right pleural effusion. IMPRESSION: Trace right pleural effusion.
[2025-08-10 23:05] VITALS: BP 169/107; PULSE 104; RESP 16; TEMP 97.5; O2SAT 100
[2025-08-10] MEDS: NOREPINEPHRINE 8 MG/250ML KIT 250 ML IV SCH (23:20)
--- NOTE | 2025-08-11 01:15 | DVHNC2 ---
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) Indication: CVP monitoring Room prepared for procedure: Yes [employer] Professor performed hand hygien: Yes Maximal sterile barrier precau: Mask/Eye shield, Sterile gown, Sterlie gloves, Large sterlie drape Skin Preparation: Chlorhexidine gluconate Skin preparation completely dr: Yes Insertion site: Right, Internal jugular Central line catheter type: [id number] dialysis Number of lumens: 3 Central line exchanged over a: No Antiseptic ointment applied to: Yes Post Assessment: Chest X-Ray, No Pneumothorax Informed consent obtained: No Risks/benefits/alt described: No Notes ULTRASOUND-GUIDED RIGHT INTERNAL JUGULAR CENTRAL VENOUS CANNULATION CPT Codes: 91129 (ultrasound guidance) 88264 (insertion of non-tunneled centrally inserted central venous catheter) 27224 (CXR interpretation) DATE: 08/10/2025 PHYSICIAN: GALI SANTOS RESIDENT, JORDEN DUBOSE MD PROCEDURE PERFORMED: Limited Ultrasound-guided Right internal jugular central line placement. ANESTHESIA: 2 mL of 1% lidocaine plain. ESTIMATED BLOOD LOSS: less than 5 mL. SPECIMENS: None. COMPLICATIONS: None. INDICATIONS FOR PROCEDURE: The patient is in need of large bore IV access for administration of fluids, including blood products and vasoactive drugs, possible transvenous cardiac pacing and CVP monitoring for hemodynamic instability. Emergent procedure. Medically necessary for administration of vaso-active medications. DESCRIPTION OF PROCEDURE IN DETAIL: The patient was lying in the Trendelenburg position with head turned 30 degrees away from the insertion site. The skin was thoroughly sponged with chlorhexidine and allowed to dry. All persons involved were shielded with hair nets, face masks and sterile gowns. With sterile-gloved hands the right neck area was draped with the large disposable sterile field provided in the pre-manufactured kit. The skin and subcutaneous tissues superficial to the RIGHT internal jugular vein were anesthetized with 2 mL of 1% lidocaine. The RIGHT internal jugular vein was identified on ultrasound from the angle of the mandible down into the supraclavicular fossa using the linear ultrasound probe in the transverse orientation. The carotid artery was identified and avoided utilizing color-flow. The internal jugular vein was then placed in the center of the ultrasound field and compressed for patency. A movement artifact was identified as the needle was advanced through the skin and advanced toward the vessel. A real time hyperechoic signal revealed visualization of vascular needle entry into the lumen as blood was noted to flashback in the syringe. The needle was then held in place while the guide wire was advanced. The needle was then removed. Direct visualization of guide wire location within the vein was noted on ultrasound indicating proper placement and was document in the electronic medical record chart. A skin dilator was advanced over the guidewire and removed, and the triple-lumen catheter was then advanced over the guide wire into proper position. The guide wire was removed and discarded. The ports were aspirated which showed good blood return and then carefully flushed with normal saline. The catheter was stabilized and sutured to the skin with 2-0 silk at 2 anchor points. A sterile bio-patch and dressing was placed over the catheter, including the insertion site. The patient tolerated the procedure well. A chest x-ray was ordered for position confirmation. Post-procedure chest x-ray shows PA an endotracheal tube terminates 4.7 cm above the rima. A right IJ line terminates within the right atrium. Date of Service: Aug 11, 2025 Billing Provider: AALIYAH LEONARDO MD Common Visit Codes: PROCEDURE ONLY TOM TALBERT RESIDENT Aug 11, 2025 01:15
--- NOTE | 2025-08-11 01:32 | DVHNC2 ---
Intubation Indication: Altered Mental Status, Airway Protection Prep: Preoxygenation Pretreated with: Analgesia, Sedation Medicated with: Other (rocuronium, etomidate) Intubation Approach: Orotracheal Intubation size: cm (7.5) Informed consent obtained: Yes Risks/benefits/alt described: Yes Notes Endotracheal Intubation Procedure Note INDICATION: Airway Protection PROCEDURE CLAIMS REPRESENTATIVE: Davis Fairchild ATTENDING PHYSICIAN: Dr. Leonardo PROCEDURE SUMMARY: A time out was performed. My hands were washed immediately prior to the procedure. I wore a surgical cap, mask with protective eyewear, gown and gloves throughout the procedure. The patient was placed on a nuclear monitoring technician including continuous pulse oximetry. Rapid Sequence Intubation was conducted. The patient received 05 mg mg of etomidate for induction and 80 mg of rocuronium for adequate paralysis. Cricoid pressure was maintained from time induction agent was given to time of cuff balloon inflation. Using a direct laryngoscope and a size 7.5 endotracheal tube with stylet, the patient was intubated on the first attempt. The stylet was removed and cuff balloon was inflated. Appropriate endotracheal tube position was confirmed by direct visualization of vocal cord passage, fogging of the tube, CO2 colormetric indicator and symmetric breath s ounds. The tube was secured at 22 cm at the lips. Post intubation chest x-ray shows proper position of ETT and no obvious comp lication. Date of Service: Aug 10, 2025 Billing Provider: AALIYAH LEONARDO MD Common Visit Codes: PROCEDURE ONLY DAVIS FAIRCHILD Aug 11, 2025 01:32
--- NOTE | 2025-08-12 12:06 | ECG ---
[facility] Test Date: 2025-08-10 Test Time: 20:31:56 Pat Name: RADHA RAMOS Department: [facility] ED Patient ID: [facility]-[id number] Room: Gender: F Guinea Pig Breeder: rich : 1945 Requested By: EMERGENCY EMERGENCY Order Number: [id number] Reading MD: Antwan Oropeza Measurements Intervals [place] Rate: 130 P: 0 MI: 0 QRS: 21 QRSD: 92 T: 234 QT: 349 QTc: 513 Interpretive Statements Atrial fibrillation Abnormal R-wave progression, early transition Repolarization abnormality, prob rate related Prolonged QT interval Electronically Signed On 08-12-2025 12:18:26 PDT by Antwan Oropeza Please click the below link to view image of tracing.
== END 2025-08-10 23:35 | disposition short-term general hospital (02) ==
LOC: EDBD 20:28 → ER 20:28
DX: I63.40 Cerebral infarction due to embolism of unspecified cerebral artery (principal); I48.91 Unspecified atrial fibrillation; I13.0 Hypertensive heart and chronic kidney disease with heart failure and stage 1 through stage 4 chronic kidney disease, or unspecified chronic kidney disease; E11.22 Type 2 diabetes mellitus with diabetic chronic kidney disease; N18.2 Chronic kidney disease, stage 2 (mild); I50.9 Heart failure, unspecified; M19.90 Unspecified osteoarthritis, unspecified site; Z79.4 Long term (current) use of insulin; Z79.01 Long term (current) use of anticoagulants
CPT/HCPCS: 31500; 36415; 36556; 36600; 70450; 70496; 70498; 71045; 80053; 82805; 82947; 83605; 83735; 83880; 84484; 85025; 85610; 85730; 86850; 86900; 86901; 87040; 87070; 87205; 93005; 96361; 96374; 99291; J2250; J7030; Q9967